=== PATIENT | male | born 1960 | race Caucasian/White ===

== ENCOUNTER 2020-02-21 11:21 | Inpatient (IN) | payer OTHER, SELFPAY ==
[2020-02-21] VITALS (9 sets, daily range): BP systolic 146–201; BP diastolic 86–117; PULSE 96–142; RESP 18–28; TEMP 36.7–36.8; O2SAT 95–99; BMI 17.6
--- NOTE | ~2020-02-21 | CT_ITS ---
EXAMINATION: CT brain wo con INDICATION: Head injury COMPARISON: 02/26/2020 TECHNIQUE: Standard unenhanced head CT. The dose-length product (DLP) was 681.00 mGy-cm. The mA was a djusted according to patient size. Iterative reconstruction technique was employed. FINDINGS: There is no acute intraparenchymal hemorrhage. No evidence of mass lesion. No evidence of a cute infarction. There is mild periventricular and subcortical hypodensity probably related to small vessel ischemic disease. There is mild prominence of the sulci and ventricles related to cerebral atr ophy. Intracranial calcified cerebral atherosclerosis is noted. There are no extra-axial collections. There is no mass effect or midline shift. The orbits and soft tissues are unremarkable. The visuali zed sinuses and mastoid air cells are well aerated. IMPRESSION: 1. No acute intracranial abnormality. 2. Age related findings. Reviewed, dictated and finalized at location A.
--- NOTE | ~2020-02-21 | XR_ITS ---
EXAMINATION: XR barium swallow modified DATE: 02/28/2020 11:11 INDICATION: Dysphagia. TECHNIQUE: The patient was given barium-containing material of multiple consistencies to swallow by fuda morejon speech pathologist while I performed fluoroscopy. Dose-area product was 2.14 Gy-cm2. 3.4 minutes fluoroscopy time FINDINGS: Oral Stage: Some to and fro motion was noted, with some delay in initiation of swallowing. Pharyngeal Phase: Laryngeal penetration Trace aspiration Vallecular and piriform sinus residue Cervical/Esophageal Stage: Within functional limits IMPRESSION: Modified esophagram findings as above. Please refer to the speech therapy report for spec ific recommendations. Reviewed, dictated and finalized at Location A. Reviewed, dictated and finalized at location A. IMPRESSION: Modified esophagram findings as above. Please refer to the speech t herapy report for specific recommendations.
--- NOTE | ~2020-02-21 | US_ITS ---
EXAMINATION: US right upper quadrant DATE: 02/22/2020 11:47 INDICATION: Abnormal liver function tests. TECHNIQUE: Multiple grayscale and Doppler ultrasound images of the abdomen were obtained. COMPARISON: Chest CT 04/11/2019 FINDINGS: The pancreas demonstrates heterogeneous echogenicity with dilatation of the pancreatic duct , consistent with chronic pancreatitis. There is diffuse hepatic steatosis. There is normal flow in m ain portal vein. The gallbladder is normal in size. No gallstones or gallbladder wall thickening. The re was no sonographic Lyons sign. The common duct is normal and measures 5 mm. IMPRESSION: 1. Diffuse hepatic steatosis. 2. Chronic pancreatitis. Reviewed, dictated and finalized at location A.
--- NOTE | ~2020-02-21 | US_ITS ---
EXAMINATION: US art doppler w press LE BI DATE: 02/21/2020 12:59 INDICATION: Claudication. TECHNIQUE: Segmental pressures and plethysmographic and Doppler waveforms of the brachial and lower e xtremity arteries were obtained. COMPARISON: Arterial Doppler and segmental pressures 10/10/2019 FINDINGS: Right and left brachial artery pressures of 183 mm Hg and 183 mm Hg, respectively, are concordant (no rmal difference <= 30 mmHg). The right high-thigh pressure index is 1.04 (normal > 1.2). The right ankle-brachial index (CAROLINA) is 1 .05 (normal >= 0.9-1.0). The right great toe-brachial index (TBI) is 0.93 (normal >= 0.65). Arterial Doppler waveforms are biphasic in common femoral artery and at least triphasic from superficial femor al artery to the ankle. The left high-thigh pressure index is 0.77. The left CAROLINA is 0.79. The left TBI is 0.55. The left lowe r extremity segmental pressure gradients are normal. Arterial Doppler waveforms are biphasic from com mon femoral artery to the ankle. IMPRESSION: 1. Stable mildly decreased left CAROLINA, consistent with arterial occlusive disease, most likely in the l eft iliofemoral distribution. Reviewed, dictated and finalized at location A. IMPRESSION: 1. Stable mildly decreased left CAROLINA, consistent with arterial occlusive disease , most likely in the left iliofemoral distribution.
--- NOTE | ~2020-02-21 | XR_ITS ---
EXAMINATION: XR chest 2V DATE: 02/25/2020 09:29 INDICATION: Cough, possible aspiration TECHNIQUE: AP and lateral views of the chest are obtained. COMPARISON: 02/21/2020 FINDINGS: The lungs are free of acute opacities. There is no pleural effusion or pneumothorax. The ca rdiomediastinal silhouette is normal. There is severe lower thoracic spondylosis. IMPRESSION: 1. No acute cardiopulmonary abnormality. Reviewed, dictated and finalized at location A.
--- NOTE | ~2020-02-21 | XR_ITS ---
EXAMINATION: XR barium swallow modified DATE: 03/01/2020 13:55 INDICATION: Dysphagia. TECHNIQUE: The patient was given barium-containing material of multiple consistencies to swallow by fuad morejon speech pathologist while I performed fluoroscopy. Dose-area product was 1.505 Gy-cm2. 2.5 minutes fluoroscopy time FINDINGS: Oral Stage: Any. And showing Pharyngeal Phase: Laryngeal penetration Vallecular and piriform sinus residue Cervical/Esophageal Stage: Within functional limits IMPRESSION: Modified esophagram findings as above. Please refer to the speech therapy report for spec [facility] recommendations. Reviewed, dictated and finalized at Location A. Reviewed, dictated and finalized at location A. IMPRESSION: Modified esophagram findings as above. Please refer to the speech t herapy report for specific recommendations.
--- NOTE | ~2020-02-21 | XR_ITS ---
EXAMINATION: XR chest 2V DATE: 02/21/2020 13:02 INDICATION: Cough and shortness of breath. TECHNIQUE: Frontal and lateral views of the chest were obtained on 3 radiographs. COMPARISON: Chest CT 04/11/2019 FINDINGS: The lungs are hyperexpanded, consistent with emphysema. There is mild atelectasis at right lung base. No pleural effusion or pneumothorax. The heart size is normal. There is mild chronic anter ior wedging of multiple thoracic vertebral bodies. IMPRESSION: 1. Mild atelectasis at right lung base. 2. Emphysema. Reviewed, dictated and finalized at location A.
--- NOTE | ~2020-02-21 | CT_ITS ---
EXAMINATION: CT brain wo con INDICATION: Transient alteration of awareness, dysphagia COMPARISON: None TECHNIQUE: Standard unenhanced head CT. The dose-length product (DLP) was 681.00 mGy-cm. The mA was a djusted according to patient size. Iterative reconstruction technique was employed. FINDINGS: There is no acute intraparenchymal hemorrhage. No evidence of mass lesion. No evidence of a cute infarction. There is mild periventricular and subcortical hypodensity probably related to small vessel ischemic disease. There is mild prominence of the sulci and ventricles related to cerebral atr ophy. Intracranial calcified cerebral atherosclerosis is noted. There are no extra-axial collections. There is no mass effect or midline shift. The orbits and soft tissues are unremarkable. The visuali zed sinuses and mastoid air cells are well aerated. IMPRESSION: 1. No acute intracranial abnormality. 2. Age related findings. Reviewed, dictated and finalized at location A.
--- NOTE | 2020-02-21 11:52 | PC.NURSE ---
After initial assessment, pt states that he used to be a heavy drinker. States he stopped drinking several pints of vodka a day last week. Pt did states he had an unknown amount of ETOH last night. Pt shaky in room, tachycardic.
[2020-02-21 11:53] LABS: Basophils Absolute Auto 0.1 K/mm3 (0.0-0.1); Basophils Percent Auto 0.8 % (0.2-1.2); Eosinophils Percent Auto 0.3 % (0-4.4); Hematocrit 34.3 % (42.0-52.0); Hemoglobin 11.9 g/dL (14.0-18.0); Immature Granulocyte Absolute 0.04 K/mm3 (0.00-0.031); Immature Granulocyte Percent A 0.4 % (0-0.5); Lymphocytes Absolute Auto 1.92 K/mm3 (0.9-3.2); Lymphocytes Percent Auto 17.6 % (18.3-44.2); Mean Corpuscular HGB Conc 34.7 g/dl (32-36); Mean Corpuscular Hemoglobin 34.5 pg (26-34); Mean Corpuscular Volume 99.4 fl (80-100); Mean Platelet Volume 11.6 fl (7.4-10.4); Monocytes Absolute Auto 0.7 K/mm3 (0.1-0.6); Monocytes Percent Auto 6.6 % (2.6-8.5); Neutrophils Absolute Auto 8.1 K/mm3 (1.3-6.7); Neutrophils Percent Auto 74.3 % (45.5-73.1); Platelet Count Result 208 k/mm3 (150-375); Red Blood Count 3.45 M/mm3 (4.6-6.20); Red Cell Distribution Width 13.9 % (11.5-14.5); White Blood Count 10.9 K/mm3 (4.5-10.0)
--- NOTE | 2020-02-21 11:58 | ECG_ITS ---
Measurements Intervals Norris Rate: 128 P: 75 HI: 167 QRS: 77 QRSD: 84 T: 71 QT: 292 QTc: 427 Interpretive Statements SINUS TACHYCARDIA ANTEROSEPTAL INFARCT, AGE INDETERMINATE BASELINE WANDER- II, III, AVR, AVF ABNORMAL ECG Electronically Signed On 02-21-2020 12:33:46 CDT by Jesus Gomez D.O.
--- NOTE | 2020-02-21 12:03 | ED.GENADULT ---
HPI - General Adult General Chief complaint: Unspecified <DULCE Walker Last Filed: 02/21/20 17:41> Stated complaint: MULTIPLE C/O <DULCE Walker Last Filed: 02/21/20 17:41> Time Seen by Provider: 02/21/20 11:48 <DULCE Walker Last Filed: 02/21/20 17:41> Source: patient <DULCE Walker Last Filed: 02/21/20 17:41> Mode of arrival: ambulatory <DULCE Walker Last Filed: 02/21/20 17:41> Limitations: no limitations <DULCE Walker Last Filed: 02/21/20 17:41> History of Present Illness HPI narrative: This is a 59 year old male that presents to the ER for leg weakness x 1 year. Reports he had ultrasounds of his legs a couple months ago and was told he had a blockage in the left leg. Reports he has continued to have pain in the legs especially with walking. Also reports weakness in the legs. Reports he has had a cough for a couple years. Reports increasing shortness of breath recently. Reports he has been diagnosed with Emphysema, but does not take any medications for this. Reports he has been bright red blood in the stool intermittently over the last couple months. Reports he last saw it a week ago. Reports he does have history of constipation and hemorrhoids. Reports a history of alcoholism. Reports he would like to stop drinking. He last drank last night. Denies fever, sore throat, congestion, abdominal pain, vomiting, diarrhea, or dysuria. <DULCE Walker Last Filed: 02/21/20 17:41> Related Data Home medications: Home Medications Medication Instructions Recorded Confirmed amlodipine 10 mg/kg PO DAILY 02/21/20 02/21/20 cyclobenzaprine 10 mg PO BID 02/21/20 02/21/20 sertraline 50 mg PO DAILY 02/21/20 02/21/20 <DULCE Walker Last Filed: 02/21/20 17:41> Allergies/adverse reactions: Allergies Allergy/AdvReac Type Severity Reaction Status Date / Time No Known Allergies Allergy Unknown Verified 02/21/20 11:35 <Carline Orr PA-C - Last Filed: 02/21/20 17:41> Review of Systems Review of Systems: Narrative: CONSTITUTIONAL: Denies fever ENT: Denies rhinorrhea, congestion, sore throat CARDIOVASCULAR: Denies chest pain, or edema. RESPIRATORY: Reports cough and dyspnea. GASTROINTESTINAL: Denies abdominal pain, nausea, vomiting, or diarrhea. GENITOURINARY: Denies dysuria or hematuria. MUSCULOSKELETAL: Reports myalgia. NEUROLOGIC: Reports weakness. <DULCE Walker Last Filed: 02/21/20 17:41> All systems reviewed & are unremarkable except as noted in HPI and below <DULCE Walker Last Filed: 02/21/20 17:41> [facility] Past Medical History Medical History: Medical History (Updated 02/21/20 @ 16:12 by Judith Bacon MD) History of depression History of hypertension <Carline Orr PA-C - Last Filed: 02/21/20 17:41> Family History Family History: Family History (Updated 02/21/20 @ 18:44 by Cherelle Todd, MAURISIO) Father Acute myocardial infarction Mother Emphysema lung Sibling Emphysema lung <DULCE Walker Last Filed: 02/21/20 17:41> Social History Social History: Social History Smoking packs per day: 1 Smoking cigarettes per day: 20.0 Years smoked: 40 Smoking pack-years: 40.00 Smoking status: Current every day smoker Tobacco type: cigarettes Alcohol intake: current Substance use: never Gender identity (if verbalized by the patient): Male Spiritual care concerns: No <DULCE Walker Last Filed: 02/21/20 17:41> Exam Narrative: Exam Narrative: GENERAL: Well-appearing, thin, and in no acute distress. HEAD: Normocephalic, atraumatic. EYES: PERRLA and EOMI. ENT: Nares clear, no rhinorrhea or epistaxis. Mucous membranes moist. Oropharynx without tonsillar hypertrophy exudate or other lesions. Bilateral TMs pearly valentine non-bulging NECK: Supple. No adenopath
[2020-02-21 12:05] LABS: Add Urine Microscopic? YES; Appearance Urine Clear (Clear); Bilirubin Urine 1+ (Negative); Blood Urine Negative (Negative); Color Urine Amber (Yellow); Glucose Urine UA Negative (Negative); Hyaline Casts Urine 20-29 /lpf; Ketones Urine Trace mg/dL (Negative); Leukocyte Esterase Ur Negative LEU/UL (Negative); Mucus Urine Rare /lpf; Nitrate Urine Negative (Negative); Protein Urine Negative (Negative); RBC Urine 0-2 /hpf (0-2); Specific Grav Ur 1.016 (1.001-1.035); Squamous Epithelial Cell Urine Rare /hpf (Few); WBC Urine 0-3 /hpf
[2020-02-21] MEDS: LORAZEPAM INJ 2 MG/ML VIAL 1 MG IV PUSH (12:05)
[2020-02-21] MEDS: SODIUM CHLORIDE 0.9% IV 1,000 ML 999 ML IV CONT (12:05)
[2020-02-21 12:12] LABS: Alanine Aminotransferase 86 U/L (4-50); Albumin Level 3.9 g/dL (3.5-5.1); Alkaline Phosphatase 732 U/L (38-126); Aspartate Amino Transferase 275 U/L (17-59); Bilirubin,Total 3.3 mg/dL (0.2-1.3); Blood Urea Nitrogen 7 mg/dL (9-20); Calcium 8.6 mg/dL (8.4-10.2); Carbon Dioxide 20 mmol/L (22-30); Chloride 98 mmol/L (98-107); Estimated CRCL calculation 90 ml/min; Estimated Glomerular Filt Rate > 60; Glucose 207 mg/dL (75-110); Lipase 76 U/L (23-300); Potassium 3.6 mmol/L (3.4-5.0); Sodium 131 mmol/L (137-145)
[2020-02-21 12:26] LABS: Partial Thromboplastin Time 28.1 SECONDS (22.3-36.8)
[2020-02-21 12:34] LABS: Lactic Acid Reflex 3.4 mmol/L (0.7-2.1)
[2020-02-21 13:13] LABS: Ethanol < 10 mg/dL (<10)
[2020-02-21 13:17] LABS: CRP 1.1 mg/dL (<1.0); Lactate Dehydrogenase 638 U/L (313-618)
[2020-02-21] MEDS: IPRATROPIUM BR 0.02% INH SOLN 0.5 MG/2.5 ML VIAL INHALATION (13:44)
[2020-02-21] MEDS: ALBUTEROL SULFATE NEB 2.5 MG/0.5 ML INH 5 MG INHALATION (13:44)
[2020-02-21] MEDS: methylPREDNISolone SOD SUCC 125 MG VIAL IV PUSH (15:17)
[2020-02-21 15:18] LABS: Reflex Lactic Acid Yes or No Add Lactic
[2020-02-21] MEDS: ALBUTEROL SULFATE (*SP) AEROSOL 1 PUFF 2 PUFF INHALATION ×2 (15:33→19:37)
[2020-02-21 15:51] LABS: Lactic Acid 1.3 mmol/L (0.7-2.1)
[2020-02-21] MEDS: LORAZEPAM INJ 2 MG/ML VIAL 0.5 MG IV PUSH (16:52)
--- NOTE | 2020-02-21 17:15 | ADMGEN ---
This patient, Tito Raphael, was admitted to [facility] Surg Room 328-01. Patient/family oriented to hospital policies and general routines including ID bracelet, bed and alarms, visiting hours, pain management, procedures, bathroom and other care routines, personal items, smoking policy, room service/diet, and visiting hours. Valuables list has been completed. Information on how to activate the Rapid Response Team has been discussed. Patient/Family are encouraged to report perceived risks to care and to ask questions if they do not understand what they are told or what they should do.
--- NOTE | 2020-02-21 17:27 | ADMGEN ---
This patient, Tito Raphael, was admitted to [facility] Surg Room 328-01. Patient/family oriented to hospital policies and general routines including ID bracelet, bed and alarms, visiting hours, pain management, procedures, bathroom and other care routines, personal items, smoking policy, room service/diet, and visiting hours. Valuables list has been completed. Information on how to activate the Rapid Response Team has been discussed. Patient/Family are encouraged to report perceived risks to care and to ask questions if they do not understand what they are told or what they should do.
[2020-02-21] MEDS: methylPREDNISolone SOD SUCC 125 MG VIAL 60 MG IV PUSH (21:05)
--- NOTE | 2020-02-21 21:37 | PM.IMHP ---
H&P: HPI History of Present Illness Chief complaint: Alcohol withdrawal/COPD exacerbation Narrative: Tito Raphael is a 59 year old male this is a known alcoholic. The patient used to drink a 5th of gin every day. He stated that he decided he was going to try to cut down on his own. So he started to wean himself down to 5 times a week and then 4 times weak and the patient got down to drinking alcohol 3 times a week. The patient stated that he drink last night he drink a pint of gin. The patient is complaining of pain in his feet and his legs that they burn all the time. He is complaining of left leg pain they did arterial Dopplers which shows mild decrease in arterial flow the left leg which appears to be chronic and consistent. A give the patient Vicodin that seemed to help. The only other diagnosis at the patient has hypertension, depression, anxiety. Patient was recently diagnosed with COPD as well. He was prescribed some inhalers. Patient stated he has been coughing and short of breath. He denies any fever chills. Patient currently is not working. He has no health insurance and was planning on filing for disability. He was given a banana bag. He was given an inhaler. He was started on Solu-Medrol. He was given Ativan. Date of service 06/23/2020. Review of Systems Review of Systems: All systems reviewed & are unremarkable except as noted in HPI and below Constitutional: Constitutional: Reports as per HPI and Reports no additional constitutional complaints Eyes: Eyes: Reports as per HPI and Reports no additional eye complaints ENT: Reports system reviewed and no additional complaints, except as documented and Reports Normal hearing present Cardiovascular: Cardiovascular: Reports no additional cardiovascular complaints Respiratory: Respiratory: Reports no additional respiratory complaints and Reports no additional respiratory complaints Gastrointestinal: Gastrointestinal: Reports as per HPI and Reports no additional gastrointestinal complaints Musculoskeletal: Musculoskeletal: Reports no additional musculoskeletal complaints Integumentary/Breasts: Skin/Breast: Reports system reviewed and no additional complaints, except as docu and Reports as per HPI Neurologic: Reports system reviewed and no additional complaints, except as documented, Reports as per HPI and Reports Normal hearing present Psychiatric: Psychiatric: Reports no additional psychiatric complaints and Reports as per HPI Endocrine: Endocrine: Reports no additional endocrine complaints Hematologic/Lymphatic: Hematologic/Lymphatic: Reports no additional hematologic/lymphatic complaints Allergic/Immunologic: Allergic/Immunologic: Reports no additional allergic/immunologic complaints PMFSH Past Medical History Medical History (Updated 02/21/20 @ 22:01 by Shyla Reagan NP) Depression History of depression History of hypertension Hypertension Surgical History Surgical History (Updated 02/21/20 @ 21:56 by Shyla Reagan NP) No pertinent past surgical history Family History Family History Father Acute myocardial infarction Mother Emphysema lung Sibling Emphysema lung Social History Social History (Updated 02/21/20 @ 21:58 by Shyla Reagan NP) Social History: The patient lives with his aunt and is not currently employed anywhere. He stated that he was going to try to work on some disability. The patient helps to take care of his aunt and helps to take care of another elderly lady. The patient currently smokes cigarettes. He was drinking a pt of gin every day and he tried to wean off of it by cutting down to 3 times a week the last drink last night. He drink a pt of gin. He was a long time ago but . He has no children. Smoking packs per day: 1 Smoking cigarettes per day: 20.0 Years smoked: 40 Smoking pack-years: 40.00 Smoking status: Current every d
[2020-02-21] MEDS: CYCLOBENZAPRINE HCL 10 MG TABLET PO (21:43)
[2020-02-21] MEDS: GABAPENTIN 100 MG CAPSULE PO (21:55)
[2020-02-21] MEDS: CHLORDIAZEPOXIDE 25 MG CAPSULE PO (23:50)
[2020-02-22] VITALS (14 sets, daily range): BP systolic 113–155; BP diastolic 68–91; PULSE 76–124; RESP 14–20; TEMP 36.2–37.2; O2SAT 96–100; BMI 17.6
[2020-02-22] MEDS: methylPREDNISolone SOD SUCC 125 MG VIAL 60 MG IV PUSH ×3 (05:20→18:21)
[2020-02-22] MEDS: CHLORDIAZEPOXIDE 25 MG CAPSULE PO (05:20)
[2020-02-22 06:07] LABS: Basophils Percent Auto 0.3 % (0.2-1.2); Hematocrit 31.8 % (42.0-52.0); Hemoglobin 10.8 g/dL (14.0-18.0); Immature Granulocyte Absolute 0.02 K/mm3 (0.00-0.031); Immature Granulocyte Percent A 0.5 % (0-0.5); Lymphocytes Percent Auto 16.1 % (18.3-44.2); Mean Corpuscular Hemoglobin 34.4 pg (26-34); Mean Corpuscular Volume 101.3 fl (80-100); Mean Platelet Volume 11.4 fl (7.4-10.4); Monocytes Absolute Auto 0.2 K/mm3 (0.1-0.6); Neutrophils Percent Auto 79.1 % (45.5-73.1); Platelet Count Result 170 k/mm3 (150-375); Red Blood Count 3.14 M/mm3 (4.6-6.20); Red Cell Distribution Width 13.8 % (11.5-14.5); White Blood Count 3.7 K/mm3 (4.5-10.0)
[2020-02-22 06:17] LABS: Alanine Aminotransferase 68 U/L (4-50); Albumin Level 3.5 g/dL (3.5-5.1); Alkaline Phosphatase 580 U/L (38-126); Aspartate Amino Transferase 164 U/L (17-59); Bilirubin,Total 2.8 mg/dL (0.2-1.3); Blood Urea Nitrogen 2 mg/dL (9-20); Calcium 8.9 mg/dL (8.4-10.2); Carbon Dioxide 25 mmol/L (22-30); Chloride 101 mmol/L (98-107); Estimated CRCL calculation 107 ml/min; Estimated Glomerular Filt Rate > 60; Glucose 161 mg/dL (75-110); Magnesium 1.7 mg/dL (1.6-2.3); Potassium 3.5 mmol/L (3.4-5.0); Sodium 132 mmol/L (137-145)
[2020-02-22 08:26] LABS: Immature Reticulocyte Fraction 24.8 % (3.0-15.9); Reticulocyte Hemoglobin Conten 38.2 pg (28.2-35.7); Reticulocyte Percent 1.68 % (0.7-4.3); Reticulocytes Absolute 0.05 B/L (32.2-175.7)
[2020-02-22 08:37] LABS: Ammonia 38 umol/L (9-30)
[2020-02-22] MEDS: ALBUTEROL SULFATE (*SP) AEROSOL 1 PUFF 2 PUFF INHALATION ×3 (08:49→19:37)
[2020-02-22 09:07] LABS: Iron 109 ug/dL (49-181)
[2020-02-22] MEDS: FOLIC ACID 1 MG TABLET PO (09:16)
[2020-02-22] MEDS: AMLODIPINE BESYLATE 5 MG TABLET 10 MG PO (09:16)
[2020-02-22] MEDS: SERTRALINE HCL 50 MG TABLET PO (09:16)
[2020-02-22] MEDS: GABAPENTIN 100 MG CAPSULE PO ×3 (09:16→18:25)
[2020-02-22] MEDS: CYCLOBENZAPRINE HCL 10 MG TABLET PO ×2 (09:16→20:47)
[2020-02-22 09:17] LABS: Percent Iron Saturation 50 % (20-50)
[2020-02-22] MEDS: LORAZEPAM 1 MG TABLET 2 MG PO (09:17)
[2020-02-22] MEDS: THIAMINE HCL 100 MG TABLET PO (09:17)
[2020-02-22] MEDS: POTASSIUM CHLORIDE 20 MEQ TABLET 40 MEQ PO (09:17)
[2020-02-22 09:40] LABS: Hepatitis B Surface Antigen Negative (Negative)
[2020-02-22 09:44] LABS: HAV RESULT Negative (Negative)
[2020-02-22 09:46] LABS: Folic Acid > 20.0 ng/mL (2.76->20)
[2020-02-22 09:58] LABS: Hepatitis C Virus Antibody Negative (Negative)
[2020-02-22] MEDS: LORAZEPAM INJ 2 MG/ML VIAL IV PUSH ×3 (12:03→20:47)
[2020-02-22] MEDS: CHLORDIAZEPOXIDE 25 MG CAPSULE 50 MG PO (12:03)
[2020-02-22] MEDS: HALOPERIDOL LACTATE 5 MG/ML VIAL IM (12:38)
--- NOTE | 2020-02-22 13:26 | PM.IMPN ---
Progress Note: A&P Assessment and Plan (1) Alcohol withdrawal: Qualifiers: Complication of substance-induced condition: uncomplicated Qualified Code(s): F10.230 - Alcohol dependence with withdrawal, uncomplicated Code(s): F10.239 - Alcohol dependence with withdrawal, unspecified Status: Acute Assessment and Plan: 02/21 CIWA scores from teens to low 20s 02/21 Added p.r.n. haloperidol, increased chlordiazepoxide to 100 mg every 6 hours, increased lorazepam to 2 mg IV q.2 hours p.r.n. 02/21 Discussed with nursing staff that if these measures are ineffective with the transferred to intensive care for Precedex IV (2) Acute exacerbation of chronic obstructive pulmonary disease: Code(s): J44.1 - Chronic obstructive pulmonary disease with (acute) exacerbation Status: Acute Assessment and Plan: 02/21 Transition to p.o. steroids Continue bronchodilators (3) Suspected 2019-nCoV infection: Code(s): Z20.828 - Contact with and (suspected) exposure to other viral communicable diseases Status: Acute Assessment and Plan: Negative (4) Depression: Qualifiers: Depression Type: unspecified Qualified Code(s): F32.9 - Major depressive disorder, single episode, unspecified Code(s): F32.9 - Major depressive disorder, single episode, unspecified Status: Chronic Assessment and Plan: Continue with patient's sertraline. (5) Hypertension: Qualifiers: Hypertension type: unspecified Qualified Code(s): I10 - Essential (primary) hypertension Code(s): I10 - Essential (primary) hypertension Status: Chronic Assessment and Plan: Continue with Norvasc. Could be related to his alcohol abuse. (6) Peripheral artery disease: Code(s): I73.9 - Peripheral vascular disease, unspecified Status: Acute Assessment and Plan: Patient has mild decrease an CAROLINA to the left leg. Could be related to his alcoholism. He also has peripheral neuropathy sore started him on low doses of gabapentin. (7) Neuropathy: Code(s): G62.9 - Polyneuropathy, unspecified Status: Acute Assessment and Plan: I did started him on low doses of gabapentin. Subjective Date/time seen: 02/22/20 13:26 Interval history: Admitted 02/20 with alcohol withdrawal. Very agitated earlier. Improved with IV lorazepam and IM haloperidol. Now resting. Review of Systems Review of Systems: ROS unobtainable: Yes unobtainable due to medical condition Exam Narrative: Exam Narrative: HEENT: PERRL, sclerae nonicteric, pharyngeal mucosa pink and intact NECK: No JVD CHEST: Clear to auscultation. Normal effort. HEART: NL S1/S2, regular, no murmur ABDOMEN: BS+, soft, nontender, no mass, no bruits EXTREMITIES: No cyanosis, edema, or clubbing NEUROLOGIC: CN intact and symmetric to inspection. MUSCULOSKELETAL: Tone and strength symmetric. PSYCH: Sleeping soundly Objective Data Vital Signs Vital Signs: Vital Signs - 24 hr 02/21/20 13:44 02/21/20 14:15 02/21/20 15:41 Temperature 98.1 F Pulse Rate 110 H 116 H 96 Pulse Rate [Monitor] Respiratory Rate 20 20 20 Blood Pressure 146/94 H 154/98 H Pulse Oximetry 95 97 02/21/20 16:52 02/21/20 17:30 02/21/20 20:00 Temperature Pulse Rate 97 96 113 H Pulse Rate [Monitor] 97 Respiratory Rate 20 20 Blood Pressure 161/95 H 154/98 H Pulse Oximetry 97 97 97 02/21/20 22:00 02/22/20 00:00 02/22/20 02:00 Temperature 98.3 F 98.6 F Pulse Rate 99 105 H 99 Pulse Rate [Monitor] 105 H Respiratory Rate 18 18 Blood Pressure 153/86 H 155/82 H Pulse Oximetry 99 96 02/22/20 04:00 02/22/20 04:36 02/22/20 06:00 Temperature 98.9 F Pulse Rate 106 H 97 Pulse Rate [Monitor] 106 H Respiratory Rate 18 Blood Pressure 145/91 H Pulse Oximetry 96 98 02/22/20 08:00 02/22/20 08:51 02/22/20 10:00 Temperature 98.3 F Pulse Rate 95 97 107 H Pulse Rate [Monitor] Resp
[2020-02-22 13:37] LABS: SARS-CoV-2 RNA PCR Negative
[2020-02-22] MEDS: CHLORDIAZEPOXIDE 25 MG CAPSULE 100 MG PO (18:25)
[2020-02-23] VITALS (11 sets, daily range): BP systolic 90–148; BP diastolic 60–87; PULSE 62–93; RESP 16–20; TEMP 35.8–36.4; O2SAT 91–99
[2020-02-23] MEDS: CHLORDIAZEPOXIDE 25 MG CAPSULE 100 MG PO ×5 (00:37→23:27)
[2020-02-23] MEDS: methylPREDNISolone SOD SUCC 125 MG VIAL 60 MG IV PUSH ×5 (00:37→23:26)
[2020-02-23] MEDS: LORAZEPAM INJ 2 MG/ML VIAL IV PUSH ×3 (01:03→23:30)
[2020-02-23 07:13] LABS: Hematocrit 32.6 % (42.0-52.0); Hemoglobin 10.8 g/dL (14.0-18.0); Mean Corpuscular HGB Conc 33.1 g/dl (32-36); Mean Corpuscular Hemoglobin 34.3 pg (26-34); Mean Corpuscular Volume 103.5 fl (80-100); Mean Platelet Volume 12.1 fl (7.4-10.4); Platelet Count Result 172 k/mm3 (150-375); Red Blood Count 3.15 M/mm3 (4.6-6.20); Red Cell Distribution Width 13.8 % (11.5-14.5); White Blood Count 6.9 K/mm3 (4.5-10.0)
[2020-02-23 07:29] LABS: Alanine Aminotransferase 63 U/L (4-50); Albumin Level 3.6 g/dL (3.5-5.1); Alkaline Phosphatase 497 U/L (38-126); Aspartate Amino Transferase 109 U/L (17-59); Bilirubin,Total 2.7 mg/dL (0.2-1.3); Blood Urea Nitrogen 10 mg/dL (9-20); Calcium 9.4 mg/dL (8.4-10.2); Carbon Dioxide 24 mmol/L (22-30); Chloride 103 mmol/L (98-107); Estimated CRCL calculation 107 ml/min; Estimated Glomerular Filt Rate > 60; Glucose 145 mg/dL (75-110); Potassium 3.9 mmol/L (3.4-5.0); Sodium 134 mmol/L (137-145)
[2020-02-23] MEDS: ALBUTEROL SULFATE (*SP) AEROSOL 1 PUFF 2 PUFF INHALATION ×4 (08:40→20:51)
[2020-02-23] MEDS: SERTRALINE HCL 50 MG TABLET PO (08:53)
[2020-02-23] MEDS: AMLODIPINE BESYLATE 5 MG TABLET 10 MG PO (08:54)
[2020-02-23] MEDS: GABAPENTIN 100 MG CAPSULE PO ×3 (08:54→18:26)
[2020-02-23] MEDS: FOLIC ACID 1 MG TABLET PO (08:54)
[2020-02-23] MEDS: CYCLOBENZAPRINE HCL 10 MG TABLET PO ×2 (08:54→20:20)
[2020-02-23] MEDS: THIAMINE HCL 100 MG TABLET PO (08:54)
--- NOTE | 2020-02-23 11:35 | PM.IMPN ---
Progress Note: A&P Assessment and Plan (1) Alcohol withdrawal: Qualifiers: Complication of substance-induced condition: uncomplicated Qualified Code(s): F10.230 - Alcohol dependence with withdrawal, uncomplicated Code(s): F10.239 - Alcohol dependence with withdrawal, unspecified Status: Acute Assessment and Plan: 02/21 CIWA scores from teens to low 20s 02/21 Added p.r.n. haloperidol, increased chlordiazepoxide to 100 mg every 6 hours, increased lorazepam to 2 mg IV q.2 hours p.r.n. 02/21 Discussed with nursing staff that if these measures are ineffective with the transferred to intensive care for Precedex IV 02/22 Symptoms well controlled on day 3 without alcohol and plan to wean sedation after day 4. (2) Acute exacerbation of chronic obstructive pulmonary disease: Code(s): J44.1 - Chronic obstructive pulmonary disease with (acute) exacerbation Status: Acute Assessment and Plan: 02/21 Transitioned to p.o. steroids Continue bronchodilators (3) Suspected 2019-nCoV infection: Code(s): Z20.828 - Contact with and (suspected) exposure to other viral communicable diseases Status: Acute Assessment and Plan: Negative (4) Depression: Qualifiers: Depression Type: unspecified Qualified Code(s): F32.9 - Major depressive disorder, single episode, unspecified Code(s): F32.9 - Major depressive disorder, single episode, unspecified Status: Chronic Assessment and Plan: Continue with patient's sertraline. (5) Hypertension: Qualifiers: Hypertension type: unspecified Qualified Code(s): I10 - Essential (primary) hypertension Code(s): I10 - Essential (primary) hypertension Status: Chronic Assessment and Plan: Continue with Norvasc. (6) Peripheral artery disease: Code(s): I73.9 - Peripheral vascular disease, unspecified Status: Acute Assessment and Plan: Patient has mild decrease an [place] to the left leg. (7) Neuropathy: Code(s): G62.9 - Polyneuropathy, unspecified Status: Acute Assessment and Plan: Continue Gabapentin Subjective Date/time seen: 02/23/20 11:35 Interval history: Admitted 02/20 with alcohol withdrawal. Last drink 02/19. 02/22 Tolerated diet. Resting comfortably. Still confused. Intermittently hallucinating. Review of Systems Review of Systems: All systems reviewed & are unremarkable except as noted in HPI and below Exam Narrative: Exam Narrative: HEENT: PERRL, sclerae nonicteric, pharyngeal mucosa pink and intact NECK: No JVD CHEST: Clear to auscultation. Normal effort. HEART: NL S1/S2, regular, no murmur ABDOMEN: BS+, soft, nontender, no mass, no bruits EXTREMITIES: No cyanosis, edema, or clubbing NEUROLOGIC: CN intact and symmetric to inspection. MUSCULOSKELETAL: Tone and strength symmetric. PSYCH: Drowsy but arouses easily. Ox1 Objective Data Vital Signs Vital Signs: Vital Signs - 24 hr 02/22/20 12:00 02/22/20 12:36 02/22/20 14:00 Temperature 98.3 F Pulse Rate 124 H 82 Pulse Rate [Monitor] 122 H Respiratory Rate 20 14 Blood Pressure 114/68 Pulse Oximetry 96 02/22/20 16:00 02/22/20 20:00 02/22/20 22:00 Temperature 97.2 F L Pulse Rate 90 Pulse Rate [Monitor] 82 76 Respiratory Rate 16 Blood Pressure 119/72 113/85 Pulse Oximetry 98 02/23/20 00:00 02/23/20 02:26 02/23/20 06:00 Temperature 97.0 F L 97.3 F L Pulse Rate 80 79 Pulse Rate [Monitor] 93 Respiratory Rate 18 16 Blood Pressure 134/81 106/73 148/87 H Pulse Oximetry 99 99 02/23/20 08:40 Temperature Pulse Rate 62 Pulse Rate [Monitor] Respiratory Rate 20 Blood Pressure Pulse Oximetry Intake/Output Intake/Output: Intake & Output 02/20/20 02/21/20 02/22/20 02/23/20 23:59 23:59 23:59 23:59 Intake Total 1000 520 120 Output Total 950 Balance 1000 -430 120 Meds/Results Medications: Active Medications Generic
[2020-02-24] VITALS (8 sets, daily range): BP systolic 106–118; BP diastolic 70–78; PULSE 69–92; RESP 16–18; TEMP 36.3–36.6; O2SAT 94–99
[2020-02-24] MEDS: CHLORDIAZEPOXIDE 25 MG CAPSULE 100 MG PO ×3 (06:22→17:57)
[2020-02-24] MEDS: methylPREDNISolone SOD SUCC 125 MG VIAL 60 MG IV PUSH (06:22)
[2020-02-24 06:40] LABS: Hematocrit 32.9 % (42.0-52.0); Mean Corpuscular HGB Conc 33.4 g/dl (32-36); Mean Corpuscular Hemoglobin 34.9 pg (26-34); Mean Corpuscular Volume 104.4 fl (80-100); Mean Platelet Volume 11.8 fl (7.4-10.4); Platelet Count Result 187 k/mm3 (150-375); Red Blood Count 3.15 M/mm3 (4.6-6.20); Red Cell Distribution Width 13.8 % (11.5-14.5); White Blood Count 10.3 K/mm3 (4.5-10.0)
[2020-02-24] MEDS: ALBUTEROL SULFATE (*SP) AEROSOL 1 PUFF 2 PUFF INHALATION ×4 (08:27→20:06)
[2020-02-24] MEDS: FOLIC ACID 1 MG TABLET PO (09:51)
[2020-02-24] MEDS: GABAPENTIN 100 MG CAPSULE PO ×3 (09:51→17:57)
[2020-02-24] MEDS: AMLODIPINE BESYLATE 5 MG TABLET 10 MG PO (09:51)
[2020-02-24] MEDS: THIAMINE HCL 100 MG TABLET PO (09:51)
[2020-02-24] MEDS: CYCLOBENZAPRINE HCL 10 MG TABLET PO ×2 (09:51→21:38)
[2020-02-24] MEDS: SERTRALINE HCL 50 MG TABLET PO (09:51)
[2020-02-24] MEDS: LORAZEPAM INJ 2 MG/ML VIAL IV PUSH ×2 (09:53→21:38)
[2020-02-24 10:58] LABS: Alanine Aminotransferase 71 U/L (4-50); Albumin Level 3.4 g/dL (3.5-5.1); Alkaline Phosphatase 453 U/L (38-126); Aspartate Amino Transferase 107 U/L (17-59); Bilirubin,Total 2.1 mg/dL (0.2-1.3); Blood Urea Nitrogen 19 mg/dL (9-20); Carbon Dioxide 23 mmol/L (22-30); Chloride 103 mmol/L (98-107); Estimated CRCL calculation 79 ml/min; Estimated Glomerular Filt Rate > 60; Glucose 191 mg/dL (75-110); Potassium 4.1 mmol/L (3.4-5.0); Sodium 131 mmol/L (137-145)
--- NOTE | 2020-02-24 11:51 | PM.IMPN ---
Progress Note: A&P Assessment and Plan (1) Alcohol withdrawal: Qualifiers: Complication of substance-induced condition: uncomplicated Qualified Code(s): F10.230 - Alcohol dependence with withdrawal, uncomplicated Code(s): F10.239 - Alcohol dependence with withdrawal, unspecified Status: Acute Assessment and Plan: 02/21 CIWA scores from teens to low 20s 02/21 Added p.r.n. haloperidol, increased chlordiazepoxide to 100 mg every 6 hours, increased lorazepam to 2 mg IV q.2 hours p.r.n. 02/21 Discussed with nursing staff that if these measures are ineffective with the transferred to intensive care for Precedex IV 02/23 Symptoms well controlled on day 4 without alcohol and plan to wean sedation 02/24. (2) Acute exacerbation of chronic obstructive pulmonary disease: Code(s): J44.1 - Chronic obstructive pulmonary disease with (acute) exacerbation Status: Acute Assessment and Plan: 02/22 Transitioned to p.o. steroids Continue bronchodilators (3) Suspected 2019-nCoV infection: Code(s): Z20.828 - Contact with and (suspected) exposure to other viral communicable diseases Status: Acute Assessment and Plan: Negative (4) Depression: Qualifiers: Depression Type: unspecified Qualified Code(s): F32.9 - Major depressive disorder, single episode, unspecified Code(s): F32.9 - Major depressive disorder, single episode, unspecified Status: Chronic Assessment and Plan: Continue with patient's sertraline. (5) Hypertension: Qualifiers: Hypertension type: unspecified Qualified Code(s): I10 - Essential (primary) hypertension Code(s): I10 - Essential (primary) hypertension Status: Chronic Assessment and Plan: Continue with Norvasc. (6) Peripheral artery disease: Code(s): I73.9 - Peripheral vascular disease, unspecified Status: Acute Assessment and Plan: Patient has mild decrease an [place] to the left leg. (7) Neuropathy: Code(s): G62.9 - Polyneuropathy, unspecified Status: Acute Assessment and Plan: Continue Gabapentin Subjective Date/time seen: 02/24/20 11:51 Interval history: Admitted 02/20 with alcohol withdrawal. Last drink 02/19. 02/23 Tolerated diet. Resting comfortably. Still confused. Intermittently hallucinating. Review of Systems Review of Systems: ROS unobtainable: Yes unobtainable due to medical condition Exam Narrative: Exam Narrative: HEENT: PERRL, sclerae nonicteric, pharyngeal mucosa pink and intact NECK: No JVD CHEST: Clear to auscultation. Normal effort. HEART: NL S1/S2, regular, no murmur ABDOMEN: BS+, soft, nontender, no mass, no bruits EXTREMITIES: No cyanosis, edema, or clubbing NEUROLOGIC: CN intact and symmetric to inspection. MUSCULOSKELETAL: Tone and strength symmetric. PSYCH: Drowsy but arouses easily. Ox1 Objective Data Vital Signs Vital Signs: Vital Signs - 24 hr 02/23/20 12:00 02/23/20 14:00 02/23/20 17:34 Temperature 97.6 F 97.2 F L Pulse Rate 84 84 Pulse Rate [Monitor] 76 Respiratory Rate 16 18 Blood Pressure 108/60 90/68 L Pulse Oximetry 94 96 02/23/20 20:00 02/23/20 20:54 02/23/20 22:00 Temperature 96.5 F L Pulse Rate 77 80 Pulse Rate [Monitor] 65 Respiratory Rate 18 18 Blood Pressure 104/67 121/70 Pulse Oximetry 91 02/24/20 01:51 02/24/20 06:00 02/24/20 09:47 Temperature 97.3 F L 97.8 F Pulse Rate 69 73 Pulse Rate [Monitor] 84 Respiratory Rate 18 18 Blood Pressure 115/70 106/70 106/70 Pulse Oximetry 94 97 Intake/Output Intake/Output: Intake & Output 02/21/20 02/22/20 02/23/20 02/24/20 23:59 23:59 23:59 23:59 Intake Total 1000 520 340 60 Output Total 950 100 Balance 1000 -430 240 60 Meds/Results Medications: Active Medications Generic Name Dose Route Start Last Admin Trade Name Freq PRN Reason Stop Dose Admin Albuterol 2 puff 02/21/20 20:00 02/24/20 08:27
[2020-02-24] MEDS: predniSONE 20 MG TABLET 40 MG PO (12:23)
[2020-02-25] VITALS (14 sets, daily range): BP systolic 104–122; BP diastolic 68–75; PULSE 74–90; RESP 18–20; TEMP 36.3–36.6; O2SAT 86–99
[2020-02-25] MEDS: CHLORDIAZEPOXIDE 25 MG CAPSULE 100 MG PO (00:25)
[2020-02-25 06:38] LABS: Ammonia 25 umol/L (9-30)
[2020-02-25 06:41] LABS: Hematocrit 35.5 % (42.0-52.0); Hemoglobin 11.5 g/dL (14.0-18.0); Mean Corpuscular HGB Conc 32.4 g/dl (32-36); Mean Corpuscular Hemoglobin 34.6 pg (26-34); Mean Corpuscular Volume 106.9 fl (80-100); Mean Platelet Volume 11.4 fl (7.4-10.4); Platelet Count Result 205 k/mm3 (150-375); Red Blood Count 3.32 M/mm3 (4.6-6.20); Red Cell Distribution Width 13.9 % (11.5-14.5); White Blood Count 13.4 K/mm3 (4.5-10.0)
[2020-02-25 06:47] LABS: INR 1.1; Prothrombin Time 13.4 Seconds (11.1-14.7)
[2020-02-25 06:53] LABS: Alanine Aminotransferase 79 U/L (4-50); Albumin Level 3.4 g/dL (3.5-5.1); Alkaline Phosphatase 423 U/L (38-126); Aspartate Amino Transferase 124 U/L (17-59); Bilirubin,Total 1.7 mg/dL (0.2-1.3); Blood Urea Nitrogen 25 mg/dL (9-20); Carbon Dioxide 25 mmol/L (22-30); Chloride 104 mmol/L (98-107); Estimated CRCL calculation 79 ml/min; Estimated Glomerular Filt Rate > 60; Glucose 142 mg/dL (75-110); Sodium 134 mmol/L (137-145)
[2020-02-25] MEDS: ALBUTEROL SULFATE (*SP) AEROSOL 1 PUFF 6 PUFF INHALATION (08:32)
--- NOTE | 2020-02-25 10:08 | PM.IMPN ---
Progress Note: A&P Assessment and Plan (1) Aspiration into airway: Qualifiers: Encounter type: initial encounter Qualified Code(s): T17.908A - Unspecified foreign body in respiratory tract, part unspecified causing other injury, initial encounter Code(s): T17.908A - Unspecified foreign body in respiratory tract, part unspecified causing other injury, initial encounter Status: Acute Assessment and Plan: Likely due to altered mental status related to alcohol withdrawal as no focal findings on exam Swallow eval CXR Hold sedation and reassess mental status (2) Alcohol withdrawal: Qualifiers: Complication of substance-induced condition: uncomplicated Qualified Code(s): F10.230 - Alcohol dependence with withdrawal, uncomplicated Code(s): F10.239 - Alcohol dependence with withdrawal, unspecified Status: Acute Assessment and Plan: 02/21 CIWA scores from teens to low 20s 02/21 Added p.r.n. haloperidol, increased chlordiazepoxide to 100 mg every 6 hours, increased lorazepam to 2 mg IV q.2 hours p.r.n. 02/21 Discussed with nursing staff that if these measures are ineffective with the transferred to intensive care for Precedex IV 02/23 Symptoms well controlled on day 4 without alcohol and planned to wean sedation 02/24. 02/24 Stop chlordiazepoxide, continue prn lorazepam (3) Acute exacerbation of chronic obstructive pulmonary disease: Code(s): J44.1 - Chronic obstructive pulmonary disease with (acute) exacerbation Status: Acute Assessment and Plan: 02/22 Transitioned to p.o. steroids Continue bronchodilators (4) Suspected 2019-nCoV infection: Code(s): Z20.828 - Contact with and (suspected) exposure to other viral communicable diseases Status: Acute Assessment and Plan: Negative (5) Depression: Qualifiers: Depression Type: unspecified Qualified Code(s): F32.9 - Major depressive disorder, single episode, unspecified Code(s): F32.9 - Major depressive disorder, single episode, unspecified Status: Chronic Assessment and Plan: Continue with patient's sertraline. (6) Hypertension: Qualifiers: Hypertension type: unspecified Qualified Code(s): I10 - Essential (primary) hypertension Code(s): I10 - Essential (primary) hypertension Status: Chronic Assessment and Plan: Continue with Norvasc. (7) Peripheral artery disease: Code(s): I73.9 - Peripheral vascular disease, unspecified Status: Acute Assessment and Plan: Patient has mild decrease an [place] to the left leg. (8) Neuropathy: Code(s): G62.9 - Polyneuropathy, unspecified Status: Acute Assessment and Plan: Continue Gabapentin Subjective Date/time seen: 02/25/20 10:08 Interval history: Admitted 02/20 with alcohol withdrawal. Last drink 02/19. 02/24 Aspirated AM meds. Requiring oxygen. More lethargic. Review of Systems Review of Systems: ROS unobtainable: Yes unobtainable due to medical condition Exam Narrative: Exam Narrative: HEENT: PERRL, sclerae nonicteric, pharyngeal mucosa pink and intact NECK: No JVD CHEST: Coarse rhonchi. Normal effort. HEART: NL S1/S2, regular, no murmur ABDOMEN: BS+, soft, nontender, no mass, no bruits EXTREMITIES: No cyanosis, edema, or clubbing NEUROLOGIC: CN intact and symmetric to inspection. MUSCULOSKELETAL: Tone and strength symmetric. PSYCH: Drowsy but arouses easily. Ox1 Objective Data Vital Signs Vital Signs: Vital Signs - 24 hr 02/24/20 10:10 02/24/20 12:00 02/24/20 14:00 Temperature 97.6 F 97.8 F Pulse Rate 92 90 Pulse Rate [Monitor] 89 Respiratory Rate 18 18 Blood Pressure 111/72 110/70 110/78 Pulse Oximetry 98 99 02/24/20 16:21 02/24/20 22:00 02/25/20 06:00 Temperature 97.9 F 97.8 F Pulse Rate 79 85 Pulse Rate [Monitor] 85 Respiratory Rate 16 20 Blood Pressure 107/72 118/78 106/75 Pulse Oximetry 96
[2020-02-25 14:01] LABS: Alveolar/Arterial O2 Gradient 99.1 mmHg; Base Excess ABG 2.2 mEq/l (+/-2.0); Fractional Inspired Oxygen 30 %; Oxygen Content ABG 15.7 %vol (16.0-22.0); Oxygen Saturation ABG 92.9 % (95.0-100.0); Oxyhemoglobin 89.8 % THb (90.0-100.0); PCO2 ABG 42.7 mmHg (35.0-45.0); PO2 ABG 64.6 mmHg (80.0-100.0); PO2 FiO2 Ratio Arterial Blood 2.15 %; Total Hemoglobin 12.4 g/dL (12.0-18.0); pH ABG 7.418 (7.350-7.450)
[2020-02-25 14:02] LABS: Site Drawn RIGHT BRACHIAL
[2020-02-25 14:03] LABS: Device NASAL CANNULA
[2020-02-25 14:04] LABS: Liters per Minute 2.5 LPM
--- NOTE | 2020-02-25 17:02 | PCRCNOTE ---
Patient has been extremely sleepy all day and doesn't awaken enough to properly do an inhaler. Both nurse and doctor are aware. Doctor will be changing inhaler order to a nebulizer order.
--- NOTE | 2020-02-25 19:29 | PC.NURSE ---
Bladder scanned pt, due to no output on this shift. Pt's bladder scan was 934. Called Dr. Augustine and left a message on his voicemail. Notified oncoming night nurse of results and that a call was placed. Also called the hospitalist office with no answer.
[2020-02-26] VITALS (10 sets, daily range): BP systolic 92–122; BP diastolic 64–84; PULSE 77–102; RESP 20–28; TEMP 36.3–37.1; O2SAT 90–98
[2020-02-26 06:59] LABS: Hematocrit 37.1 % (42.0-52.0); Mean Corpuscular HGB Conc 32.3 g/dl (32-36); Mean Corpuscular Hemoglobin 34.4 pg (26-34); Mean Corpuscular Volume 106.3 fl (80-100); Mean Platelet Volume 11.2 fl (7.4-10.4); Platelet Count Result 209 k/mm3 (150-375); Red Blood Count 3.49 M/mm3 (4.6-6.20); Red Cell Distribution Width 13.7 % (11.5-14.5); White Blood Count 15.2 K/mm3 (4.5-10.0)
[2020-02-26 07:17] LABS: Alanine Aminotransferase 77 U/L (4-50); Albumin Level 3.6 g/dL (3.5-5.1); Alkaline Phosphatase 377 U/L (38-126); Aspartate Amino Transferase 119 U/L (17-59); Bilirubin,Total 1.7 mg/dL (0.2-1.3); Blood Urea Nitrogen 26 mg/dL (9-20); Calcium 8.8 mg/dL (8.4-10.2); Carbon Dioxide 25 mmol/L (22-30); Chloride 105 mmol/L (98-107); Estimated CRCL calculation 79 ml/min; Estimated Glomerular Filt Rate > 60; Glucose 87 mg/dL (75-110); Potassium 3.6 mmol/L (3.4-5.0); Sodium 136 mmol/L (137-145)
--- NOTE | 2020-02-26 09:56 | PCSTNOTE ---
Please refer to the Bedside Swallow Evaluation in the EMR.
--- NOTE | 2020-02-26 10:01 | PM.IMPN ---
Progress Note: A&P Assessment and Plan (1) Aspiration into airway: Qualifiers: Encounter type: initial encounter Qualified Code(s): T17.908A - Unspecified foreign body in respiratory tract, part unspecified causing other injury, initial encounter Code(s): T17.908A - Unspecified foreign body in respiratory tract, part unspecified causing other injury, initial encounter Status: Acute Assessment and Plan: Likely due to altered mental status related to alcohol withdrawal as no focal findings on exam Swallow eval CXR 02/24 w/o acute change 02/24 Held sedation 02/25 Did not participate in swallowing evaluation, IV fluids begun 02/25 Leukocytosis 02/25 Zosyn day 1 (2) Alcohol withdrawal: Qualifiers: Complication of substance-induced condition: uncomplicated Qualified Code(s): F10.230 - Alcohol dependence with withdrawal, uncomplicated Code(s): F10.239 - Alcohol dependence with withdrawal, unspecified Status: Acute Assessment and Plan: 02/21 CIWA scores from teens to low 20s 02/21 Added p.r.n. haloperidol, increased chlordiazepoxide to 100 mg every 6 hours, increased lorazepam to 2 mg IV q.2 hours p.r.n. 02/21 Discussed with nursing staff that if these measures are ineffective with the transferred to intensive care for Precedex IV 02/23 Symptoms well controlled on day 4 without alcohol and planned to wean sedation 02/24. 02/24 Stop chlordiazepoxide, continue prn lorazepam 02/25 A little more awake, CT brain done but no official reading, no acute stroke or bleed apparent (3) Acute exacerbation of chronic obstructive pulmonary disease: Code(s): J44.1 - Chronic obstructive pulmonary disease with (acute) exacerbation Status: Acute Assessment and Plan: 02/22 Transitioned to p.o. steroids Continue bronchodilators (4) Suspected 2019-nCoV infection: Code(s): Z20.828 - Contact with and (suspected) exposure to other viral communicable diseases Status: Acute Assessment and Plan: Negative (5) Depression: Qualifiers: Depression Type: unspecified Qualified Code(s): F32.9 - Major depressive disorder, single episode, unspecified Code(s): F32.9 - Major depressive disorder, single episode, unspecified Status: Chronic Assessment and Plan: Continue with patient's sertraline. (6) Hypertension: Qualifiers: Hypertension type: unspecified Qualified Code(s): I10 - Essential (primary) hypertension Code(s): I10 - Essential (primary) hypertension Status: Chronic Assessment and Plan: Continue with Norvasc. (7) Peripheral artery disease: Code(s): I73.9 - Peripheral vascular disease, unspecified Status: Acute Assessment and Plan: Patient has mild decrease an [place] to the left leg. (8) Neuropathy: Code(s): G62.9 - Polyneuropathy, unspecified Status: Acute Assessment and Plan: Continue Gabapentin Subjective Date/time seen: 02/26/20 10:01 Interval history: Admitted 02/20 with alcohol withdrawal. Last drink 02/19. 02/25. More awake but still in able to participate in swallowing study. Review of Systems Review of Systems: ROS unobtainable: Yes unobtainable due to medical condition Exam Narrative: Exam Narrative: HEENT: PERRL, sclerae nonicteric, pharyngeal mucosa pink and intact NECK: No JVD CHEST: Coarse rhonchi. Normal effort. HEART: NL S1/S2, regular, no murmur ABDOMEN: BS+, soft, nontender, no mass, no bruits EXTREMITIES: No cyanosis, edema, or clubbing NEUROLOGIC: CN intact and symmetric to inspection. MUSCULOSKELETAL: Tone and strength symmetric. PSYCH: Drowsy but arouses easily. Ox1. Follow simple commands. Objective Data Vital Signs Vital Signs: Vital Signs - 24 hr 02/25/20 14:00 02/25/20 15:18 02/25/20 15:25 Temperature 97.4 F L Pulse Rate 78 Respiratory Rate 18 Blood Pressure 104/70 Pulse Oximetry 98 86 L 98
[2020-02-26] MEDS: KCL 20MEQ/0.9% SOD CHL 1,000 ML 60 ML IV CONT (17:23)
[2020-02-27] VITALS (8 sets, daily range): BP systolic 100–128; BP diastolic 62–79; PULSE 53–99; RESP 18–24; TEMP 36.3–36.7; O2SAT 91–100
[2020-02-27 06:31] LABS: Hematocrit 35.5 % (42.0-52.0); Hemoglobin 11.5 g/dL (14.0-18.0); Mean Corpuscular HGB Conc 32.4 g/dl (32-36); Mean Corpuscular Hemoglobin 34.1 pg (26-34); Mean Corpuscular Volume 105.3 fl (80-100); Mean Platelet Volume 10.9 fl (7.4-10.4); Platelet Count Result 221 k/mm3 (150-375); Red Blood Count 3.37 M/mm3 (4.6-6.20); Red Cell Distribution Width 13.4 % (11.5-14.5); White Blood Count 14.2 K/mm3 (4.5-10.0)
[2020-02-27 06:40] LABS: Alanine Aminotransferase 66 U/L (4-50); Albumin Level 3.3 g/dL (3.5-5.1); Alkaline Phosphatase 361 U/L (38-126); Aspartate Amino Transferase 84 U/L (17-59); Bilirubin,Total 1.9 mg/dL (0.2-1.3); Blood Urea Nitrogen 22 mg/dL (9-20); Calcium 8.9 mg/dL (8.4-10.2); Carbon Dioxide 23 mmol/L (22-30); Chloride 110 mmol/L (98-107); Estimated CRCL calculation 70 ml/min; Estimated Glomerular Filt Rate > 60; Glucose 96 mg/dL (75-110); Potassium 3.7 mmol/L (3.4-5.0); Sodium 138 mmol/L (137-145)
--- NOTE | 2020-02-27 09:03 | PM.IMPN ---
Progress Note: A&P Assessment and Plan (1) Aspiration into airway: Qualifiers: Encounter type: initial encounter Qualified Code(s): T17.908A - Unspecified foreign body in respiratory tract, part unspecified causing other injury, initial encounter Code(s): T17.908A - Unspecified foreign body in respiratory tract, part unspecified causing other injury, initial encounter Status: Acute Assessment and Plan: Likely due to altered mental status related to alcohol withdrawal as no focal findings on exam Swallow eval CXR 02/24 w/o acute change 02/24 Held sedation 02/25 Did not participate in swallowing evaluation, IV fluids begun 02/25 Leukocytosis 02/26 Zosyn day 2 (2) Alcohol withdrawal: Qualifiers: Complication of substance-induced condition: uncomplicated Qualified Code(s): F10.230 - Alcohol dependence with withdrawal, uncomplicated Code(s): F10.239 - Alcohol dependence with withdrawal, unspecified Status: Acute Assessment and Plan: 02/21 CIWA scores from teens to low 20s 02/21 Added p.r.n. haloperidol, increased chlordiazepoxide to 100 mg every 6 hours, increased lorazepam to 2 mg IV q.2 hours p.r.n. 02/21 Discussed with nursing staff that if these measures are ineffective with the transferred to intensive care for Precedex IV 02/23 Symptoms well controlled on day 4 without alcohol and planned to wean sedation 02/24. 02/24 Stop chlordiazepoxide, continue prn lorazepam 02/25 A little more awake, CT brain done but no official reading, no acute stroke or bleed apparent 02/26 More awake, CT w/o stroke or bleed (official reading) (3) Acute exacerbation of chronic obstructive pulmonary disease: Code(s): J44.1 - Chronic obstructive pulmonary disease with (acute) exacerbation Status: Acute Assessment and Plan: 02/22 Transitioned to p.o. steroids Continue bronchodilators (4) Alcoholic hepatitis: Qualifiers: Ascites presence: without ascites Qualified Code(s): K70.10 - Alcoholic hepatitis without ascites Code(s): K70.10 - Alcoholic hepatitis without ascites Status: Acute Assessment and Plan: 02/26 LFTs improving (5) Depression: Qualifiers: Depression Type: unspecified Qualified Code(s): F32.9 - Major depressive disorder, single episode, unspecified Code(s): F32.9 - Major depressive disorder, single episode, unspecified Status: Chronic Assessment and Plan: Continue sertraline. (6) Hypertension: Qualifiers: Hypertension type: unspecified Qualified Code(s): I10 - Essential (primary) hypertension Code(s): I10 - Essential (primary) hypertension Status: Chronic Assessment and Plan: Hold Norvasc. (7) Peripheral artery disease: Code(s): I73.9 - Peripheral vascular disease, unspecified Status: Acute Assessment and Plan: Patient has mild decrease an [place] to the left leg. (8) Neuropathy: Code(s): G62.9 - Polyneuropathy, unspecified Status: Acute Assessment and Plan: Hold Gabapentin (9) Suspected 2019-nCoV infection: Code(s): Z20.828 - Contact with and (suspected) exposure to other viral communicable diseases Status: Acute Assessment and Plan: Negative Subjective Date/time seen: 02/27/20 09:03 Interval history: Admitted 02/20 with alcohol withdrawal. Last drink 02/19. 02/26. More awake and answering questions. But drowsy when seen by ST. Denied pain. Denied SOB. Denied n/v/diarrhea. Denied itching. Denied bleeding. Review of Systems Review of Systems: All systems reviewed & are unremarkable except as noted in HPI and below Exam Narrative: Exam Narrative: HEENT: PERRL, sclerae nonicteric, pharyngeal mucosa pink and intact NECK: No JVD CHEST: Coarse rhonchi. Normal effort. HEART: NL S1/S2, regular, no murmur ABDOMEN: BS+, soft, nontender, no mass, no bruits EXTREMITIES: No cyanosis, alba
--- NOTE | 2020-02-27 10:28 | PCSTNOTE ---
Please refer to the Bedside Swallow Evaluation in the EMR.
[2020-02-27] MEDS: KCL 20MEQ/0.9% SOD CHL 1,000 ML 60 ML IV CONT (11:41)
--- NOTE | 2020-02-27 13:06 | PCNFU ---
Nutrition Follow-Up Complete: Underweight likely related to excessive alcohol intake as evidenced by BMI of 17.6. Patient to consume 75% of meals/supplements Limited progress towards goal. We will continue curret goal Pt current nutrition is NPO . Nutrition recommendation: Plans for swallowing eval when appropriate to determine feeding method. Last recorded weight is 55.7 kg. Bowel Motility:No BM reported on admit. Labs Reviewed:BUN 22,Alb 3.3 Meds Noted:KCL 1000 ml at 60 ml/hr Additional Notes: Spoke with nursing today for nutrition follow up due to COVID 19 precautions. Patient is currently NPO x 2 days. Speech therapy did assess patient today recommending to continue NPO status. I called Dr. Augustine today, he hopes to give patient 1 more day NPO and gain some more alertness back. Monitoring: labs,weight,PO intake every 3 days.
[2020-02-28] MEDS: KCL 20MEQ/0.9% SOD CHL 1,000 ML 60 ML IV CONT ×2 (05:19→21:09)
[2020-02-28 06:00] VITALS: BP 134/90; PULSE 88; RESP 18; TEMP 36.6; O2SAT 97
[2020-02-28 06:28] LABS: Hematocrit 34.4 % (42.0-52.0); Mean Corpuscular Hemoglobin 34.4 pg (26-34); Mean Corpuscular Volume 107.5 fl (80-100); Mean Platelet Volume 10.8 fl (7.4-10.4); Platelet Count Result 244 k/mm3 (150-375); Red Cell Distribution Width 13.1 % (11.5-14.5); White Blood Count 11.5 K/mm3 (4.5-10.0)
[2020-02-28 06:33] LABS: Alanine Aminotransferase 59 U/L (4-50); Albumin Level 3.3 g/dL (3.5-5.1); Alkaline Phosphatase 363 U/L (38-126); Aspartate Amino Transferase 69 U/L (17-59); Bilirubin,Total 1.8 mg/dL (0.2-1.3); Blood Urea Nitrogen 13 mg/dL (9-20); Calcium 8.9 mg/dL (8.4-10.2); Carbon Dioxide 22 mmol/L (22-30); Chloride 113 mmol/L (98-107); Estimated CRCL calculation 79 ml/min; Estimated Glomerular Filt Rate > 60; Glucose 79 mg/dL (75-110); Potassium 3.8 mmol/L (3.4-5.0); Sodium 140 mmol/L (137-145)
--- NOTE | 2020-02-28 11:42 | PCSTNOTE ---
Please refer to the Modified Barium Swallow Evaluation in the EMR.
[2020-02-28 14:57] VITALS: BP 134/90; PULSE 104; RESP 18; TEMP 36.4; O2SAT 100
--- NOTE | 2020-02-28 16:42 | PCDIET ---
Nutrition Follow-Up Complete: Underweight likely related to excessive alcohol intake as evidenced by BMI of 17.6. Patient to consume 75% of meals/supplements Goal:Goal unable to be met at this time due to failed MBS Pt current nutrition is NPO Nutrition recommendation: Initiate EN of Jevity 1.2 advancing slowly to goal of 75ml/hr (see notes below) Last recorded weight is 55.7 kg. Bowel Motility: Labs Reviewed:Albumin 3.3, Bilirubin 1.8, AST/ALT 69/59 Meds Noted: Ativan, Zosyn, KCL Additional Notes: Pt with failed MBS today. Due to most likely malnourished state, recommend starting EN slowly at 10ml/hr, advancing 10ml q 6hrs to reach goal of 75ml/hr over approx two days. Recommend monitoring PO4, K, Na, glucose for tolerance. Over 22hrs, at goal of 75ml/hr, pt will receive 1980 kcals, 92g protein, and 1332ml of free water. We will monitor pt feeding plan, intake, wt, labs daily.
--- NOTE | 2020-02-28 17:01 | PM.IMPN ---
Progress Note: A&P Assessment and Plan (1) Aspiration into airway: Qualifiers: Encounter type: initial encounter Qualified Code(s): T17.908A - Unspecified foreign body in respiratory tract, part unspecified causing other injury, initial encounter Code(s): T17.908A - Unspecified foreign body in respiratory tract, part unspecified causing other injury, initial encounter Status: Acute Assessment and Plan: Likely due to altered mental status related to alcohol withdrawal as no focal findings on exam Swallow eval unable to complete today will follow-up in a few days when mental status and strength has improved CXR 02/24 w/o acute change 02/24 Held sedation 02/25 Leukocytosis mild 02/27 Zosyn day 3 (2) Alcohol withdrawal: Qualifiers: Complication of substance-induced condition: uncomplicated Qualified Code(s): F10.230 - Alcohol dependence with withdrawal, uncomplicated Code(s): F10.239 - Alcohol dependence with withdrawal, unspecified Status: Acute Assessment and Plan: 02/21 CIWA scores from teens to low 20s 02/21 Added p.r.n. haloperidol, increased chlordiazepoxide to 100 mg every 6 hours, increased lorazepam to 2 mg IV q.2 hours p.r.n. 02/21 Discussed with nursing staff that if these measures are ineffective with the transferred to intensive care for Precedex IV 02/23 Symptoms well controlled on day 4 without alcohol and planned to wean sedation 02/24. 02/24 Stop chlordiazepoxide, continue prn lorazepam 02/25 A little more awake, CT brain done but no official reading, no acute stroke or bleed apparent 02/26 More awake, CT w/o stroke or bleed (official reading) 02/27 talking more but still somewhat confused and weak (3) Acute exacerbation of chronic obstructive pulmonary disease: Code(s): J44.1 - Chronic obstructive pulmonary disease with (acute) exacerbation Status: Acute Assessment and Plan: 02/22 Transitioned to p.o. steroids Continue bronchodilators (4) Alcoholic hepatitis: Qualifiers: Ascites presence: without ascites Qualified Code(s): K70.10 - Alcoholic hepatitis without ascites Code(s): K70.10 - Alcoholic hepatitis without ascites Status: Acute Assessment and Plan: 02/26 LFTs improving (5) Depression: Qualifiers: Depression Type: unspecified Qualified Code(s): F32.9 - Major depressive disorder, single episode, unspecified Code(s): F32.9 - Major depressive disorder, single episode, unspecified Status: Chronic Assessment and Plan: Continue sertraline. (6) Hypertension: Qualifiers: Hypertension type: unspecified Qualified Code(s): I10 - Essential (primary) hypertension Code(s): I10 - Essential (primary) hypertension Status: Chronic Assessment and Plan: BP slowly rising probably restart amlodipine 02/28 (7) Peripheral artery disease: Code(s): I73.9 - Peripheral vascular disease, unspecified Status: Acute Assessment and Plan: Patient has mild decrease an [place] to the left leg. (8) Neuropathy: Code(s): G62.9 - Polyneuropathy, unspecified Status: Acute Assessment and Plan: Holding Gabapentin (9) Suspected 2019-nCoV infection: Code(s): Z20.828 - Contact with and (suspected) exposure to other viral communicable diseases Status: Acute Assessment and Plan: Negative Subjective Date/time seen: 02/28/20 17:01 Interval history: Admitted 02/20 with alcohol withdrawal. Last drink 02/19. 02/27. More awake and answering questions. But weak when seen by ST and difficuilt following through with test of MBS. Denied pain. Denied SOB. Denied n/v/diarrhea. Denied itching. Denied bleeding. Exam Narrative: Exam Narrative: Blood pressure 134/90 pulse is 100 saturating 100% on 4 L nasal cannula afebrile HEENT: PERRL, sclerae nonicteric, NECK: No JVD CHEST: Coarse rhonchi. With faint crackle in r
[2020-02-29 02:00] VITALS: BP 113/77; PULSE 78; RESP 16; TEMP 36.2; O2SAT 98
[2020-02-29 06:00] VITALS: BP 135/76; PULSE 86; RESP 18; TEMP 36.4; O2SAT 100
[2020-02-29 06:06] LABS: Hematocrit 35.6 % (42.0-52.0); Hemoglobin 11.5 g/dL (14.0-18.0); Mean Corpuscular HGB Conc 32.3 g/dl (32-36); Mean Corpuscular Hemoglobin 34.2 pg (26-34); Mean Platelet Volume 10.5 fl (7.4-10.4); Platelet Count Result 315 k/mm3 (150-375); Red Blood Count 3.36 M/mm3 (4.6-6.20); Red Cell Distribution Width 13.2 % (11.5-14.5); White Blood Count 9.7 K/mm3 (4.5-10.0)
[2020-02-29 06:30] LABS: Alanine Aminotransferase 50 U/L (4-50); Albumin Level 3.4 g/dL (3.5-5.1); Alkaline Phosphatase 346 U/L (38-126); Aspartate Amino Transferase 62 U/L (17-59); Bilirubin,Total 1.6 mg/dL (0.2-1.3); Blood Urea Nitrogen 7 mg/dL (9-20); Carbon Dioxide 25 mmol/L (22-30); Chloride 109 mmol/L (98-107); Estimated CRCL calculation 91 ml/min; Estimated Glomerular Filt Rate > 60; Glucose 65 mg/dL (75-110); Potassium 3.6 mmol/L (3.4-5.0); Sodium 138 mmol/L (137-145)
--- NOTE | 2020-02-29 10:02 | PCNFU ---
Nutrition Follow-Up Complete: Underweight likely related to excessive alcohol intake as evidenced by BMI of 17.6. Patient to consume 75% of meals/supplements unable to meet goal at this time due to failed MBS. Pt current nutrition is NPO x 4. Nutrition recommendation: Tube feedings of Jevity 1.2 Last recorded weight is 55.7 kg. Bowel Motility:No BM reported. Labs Reviewed:Cr 0.6, BUN 7,Alb 3.4 Meds Noted:KCL 1000 ml at 60 ml/hr Additional Notes: Spoke with nursing and MD today over telephone due to COVID 19 precautions. Patient had MBS yesterday failed. Plans for a repeat MBS on or Thursday this week. Tube feeding was discussed. Patient has been confused, tube feedings would more than likely not be appropriate at this time. Tube feedings recommendations would be as follows, slowly Jevity 1.2 at 10ml/hr, advancing 10ml q 6hrs to reach goal of 75ml/hr over approx two days. Over 22hrs, at goal of 75ml/hr, pt will receive 1980 kcals, 92g protein, and 1332ml of free water. Monitoring: Follow up in 3 days.
[2020-02-29] MEDS: KCL 20MEQ/0.9% SOD CHL 1,000 ML 60 ML IV CONT (13:08)
[2020-02-29 14:00] VITALS: BP 135/78; PULSE 81; RESP 18; TEMP 36.6; O2SAT 100
--- NOTE | 2020-02-29 16:16 | P.PNIM_ITS ---
Progress Note: A&P Assessment and Plan (1) Aspiration into airway: Qualifiers: Encounter type: initial encounter Qualified Code(s): T17.908A - Unspecified foreign body in respiratory tract, part unspecified causing other injury, initial encounter Code(s): T17.908A - Unspecified foreign body in respiratory tract, part unspecified causing other injury, initial encounter Status: Acute Assessment and Plan: * Likely due to altered mental status related to alcohol withdrawal as no focal findings on exam * Swallow eval unable to complete 02/27 will follow-up when mental status and strength has improved * CXR 02/24 w/o acute change * 02/24 Held sedation * 02/25 Leukocytosis mild and resolved toay 02/27 * 02/28 Zosyn day 4 (2) Alcohol withdrawal: Qualifiers: Complication of substance-induced condition: uncomplicated Qualified Code(s): F10.230 - Alcohol dependence with withdrawal, uncomplicated Code(s): F10.239 - Alcohol dependence with withdrawal, unspecified Status: Acute Assessment and Plan: * 02/21 CIWA scores from teens to low 20s * 02/21 Added p.r.n. haloperidol, increased chlordiazepoxide to 100 mg every 6 hours, increased lorazepam to 2 mg IV q.2 hours p.r.n. * 02/21 Discussed with nursing staff that if these measures are ineffective with the transferred to intensive care for Precedex IV * 02/23 Symptoms well controlled on day 4 without alcohol and planned to wean sedation 02/24. * 02/24 Stop chlordiazepoxide, continue prn lorazepam * 02/25 A little more awake, CT brain done but no official reading, no acute stroke or bleed apparent * 02/26 More awake, CT w/o stroke or bleed (official reading) * 02/27 talking more but still somewhat confused and weak * 02/28 walking short distance with PT, more alert but still confused (3) Acute exacerbation of chronic obstructive pulmonary disease: Code(s): J44.1 - Chronic obstructive pulmonary disease with (acute) exacerbation Status: Acute Assessment and Plan: * 02/22 Transitioned to p.o. steroids and tapering * Continue bronchodilators (4) Alcoholic hepatitis: Qualifiers: Ascites presence: without ascites Qualified Code(s): K70.10 - Alcoholic hepatitis without ascites Code(s): K70.10 - Alcoholic hepatitis without ascites Status: Acute Assessment and Plan: * 02/26 LFTs improving * 02/28 slow trending down (5) Depression: Qualifiers: Depression Type: unspecified Qualified Code(s): F32.9 - Major depressive disorder, single episode, unspecified Code(s): F32.9 - Major depressive disorder, single episode, unspecified Status: Chronic Assessment and Plan: Continue sertraline. (6) Hypertension: Qualifiers: Hypertension type: unspecified Qualified Code(s): I10 - Essential (primary) hypertension Code(s): I10 - Essential (primary) hypertension Status: Chronic Assessment and Plan: BP slowly rising restarted amlodipine 02/28 (7) Peripheral artery disease: Code(s): I73.9 - Peripheral vascular disease, unspecified Status: Acute Assessment and Plan: Patient has mild decrease an [place] to the left leg. (8) Neuropathy: Code(s): G62.9 - Polyneuropathy, unspecified Status: Acute Assessment and Plan: Holding Gabapentin (9) Suspected 2019-nCoV infection: Code(s): Z20.828 - Contact with and (suspected) exposure to other viral communicable diseases Status: Acute Assessment and Plan: Negative Subjectiv
--- NOTE | 2020-02-29 16:16 | PM.IMPN ---
Progress Note: A&P Assessment and Plan (1) Aspiration into airway: Qualifiers: Encounter type: initial encounter Qualified Code(s): T17.908A - Unspecified foreign body in respiratory tract, part unspecified causing other injury, initial encounter Code(s): T17.908A - Unspecified foreign body in respiratory tract, part unspecified causing other injury, initial encounter Status: Acute Assessment and Plan: Likely due to altered mental status related to alcohol withdrawal as no focal findings on exam Swallow eval unable to complete 02/27 will follow-up when mental status and strength has improved CXR 02/24 w/o acute change 02/24 Held sedation 02/25 Leukocytosis mild and resolved toay 02/27 02/28 Zosyn day 4 (2) Alcohol withdrawal: Qualifiers: Complication of substance-induced condition: uncomplicated Qualified Code(s): F10.230 - Alcohol dependence with withdrawal, uncomplicated Code(s): F10.239 - Alcohol dependence with withdrawal, unspecified Status: Acute Assessment and Plan: 02/21 CIWA scores from teens to low 20s 02/21 Added p.r.n. haloperidol, increased chlordiazepoxide to 100 mg every 6 hours, increased lorazepam to 2 mg IV q.2 hours p.r.n. 02/21 Discussed with nursing staff that if these measures are ineffective with the transferred to intensive care for Precedex IV 02/23 Symptoms well controlled on day 4 without alcohol and planned to wean sedation 02/24. 02/24 Stop chlordiazepoxide, continue prn lorazepam 02/25 A little more awake, CT brain done but no official reading, no acute stroke or bleed apparent 02/26 More awake, CT w/o stroke or bleed (official reading) 02/27 talking more but still somewhat confused and weak 02/28 walking short distance with PT, more alert but still confused (3) Acute exacerbation of chronic obstructive pulmonary disease: Code(s): J44.1 - Chronic obstructive pulmonary disease with (acute) exacerbation Status: Acute Assessment and Plan: 02/22 Transitioned to p.o. steroids and tapering Continue bronchodilators (4) Alcoholic hepatitis: Qualifiers: Ascites presence: without ascites Qualified Code(s): K70.10 - Alcoholic hepatitis without ascites Code(s): K70.10 - Alcoholic hepatitis without ascites Status: Acute Assessment and Plan: 5/18 LFTs improving 02/28 slow trending down (5) Depression: Qualifiers: Depression Type: unspecified Qualified Code(s): F32.9 - Major depressive disorder, single episode, unspecified Code(s): F32.9 - Major depressive disorder, single episode, unspecified Status: Chronic Assessment and Plan: Continue sertraline. (6) Hypertension: Qualifiers: Hypertension type: unspecified Qualified Code(s): I10 - Essential (primary) hypertension Code(s): I10 - Essential (primary) hypertension Status: Chronic Assessment and Plan: BP slowly rising restarted amlodipine 02/28 (7) Peripheral artery disease: Code(s): I73.9 - Peripheral vascular disease, unspecified Status: Acute Assessment and Plan: Patient has mild decrease an [place] to the left leg. (8) Neuropathy: Code(s): G62.9 - Polyneuropathy, unspecified Status: Acute Assessment and Plan: Holding Gabapentin (9) Suspected 2019-nCoV infection: Code(s): Z20.828 - Contact with and (suspected) exposure to other viral communicable diseases Status: Acute Assessment and Plan: Negative Subjective Date/time seen: 02/29/20 16:16 Interval history: Admitted 02/20 with alcohol withdrawal. Last drink 02/19. 02/28. More awake and answering questions. But weak when seen by ST and difficuilt following through with test of MBS.02/27 Up in chair today Denied pain. Denied SOB. Denied n/v/diarrhea. Denied itching. Denied bleeding. Exam Narrative: Exam Narrative: Blood pressure 134/78 pulse is 86 satura
[2020-02-29 22:00] VITALS: BP 136/77; PULSE 83; RESP 20; TEMP 36.5; O2SAT 100
[2020-03-01 06:00] VITALS: BP 111/84; PULSE 74; RESP 22; TEMP 36.1; O2SAT 100
[2020-03-01] MEDS: KCL 20MEQ/0.9% SOD CHL 1,000 ML 60 ML IV CONT (09:11)
[2020-03-01 10:38] LABS: Glucose Point of Care 49 (65-105)
[2020-03-01 10:44] LABS: Blood Urea Nitrogen 6 mg/dL (9-20); Calcium 8.9 mg/dL (8.4-10.2); Carbon Dioxide 19 mmol/L (22-30); Estimated CRCL calculation 107 ml/min; Estimated Glomerular Filt Rate > 60; Potassium 4.7 mmol/L (3.4-5.0); Sodium 138 mmol/L (137-145)
[2020-03-01] MEDS: THIAMINE HCL 200 MG/2 ML VIAL 100 MG IV PUSH ×2 (11:28→18:00)
[2020-03-01] MEDS: DEXTROSE 50% 25 GM/50 ML SYRINGE IV PUSH (11:31)
[2020-03-01] MEDS: DEXTROSE 5%/0.9% SOD CHL 1,000 ML 60 ML IV CONT (11:32)
[2020-03-01 12:11] LABS: Glucose Point of Care 121 (65-105)
[2020-03-01 14:00] VITALS: BP 135/87; PULSE 84; RESP 18; TEMP 36.3; O2SAT 98
--- NOTE | 2020-03-01 15:37 | PCSTNOTE ---
Please refer to the Modified Barium Swallow Evaluation in the EMR.
--- NOTE | 2020-03-01 16:12 | P.PNIM_ITS ---
Progress Note: A&P Assessment and Plan (1) Aspiration into airway: Qualifiers: Encounter type: initial encounter Qualified Code(s): T17.908A - Unspecified foreign body in respiratory tract, part unspecified causing other injury, initial encounter Code(s): T17.908A - Unspecified foreign body in respiratory tract, part unspecified causing other injury, initial encounter Status: Acute Assessment and Plan: * Likely due to altered mental status related to alcohol withdrawal as no focal findings on exam * Swallow eval unable to complete 02/27 will follow-up when mental status and strength has improved * CXR 02/24 w/o acute change * 02/24 Held sedation * 02/25 Leukocytosis mild and resolved toay 02/27 * 02/28 Zosyn day 5 and will d/c after today * 03/01 passed swallow test for pureed per ST with thin liquids (2) Alcohol withdrawal: Qualifiers: Complication of substance-induced condition: uncomplicated Qualified Code(s): F10.230 - Alcohol dependence with withdrawal, uncomplicated Code(s): F10.239 - Alcohol dependence with withdrawal, unspecified Status: Acute Assessment and Plan: * 02/21 CIWA scores from teens to low 20s * 02/21 Added p.r.n. haloperidol, increased chlordiazepoxide to 100 mg every 6 hours, increased lorazepam to 2 mg IV q.2 hours p.r.n. * 02/21 Discussed with nursing staff that if these measures are ineffective with the transferred to intensive care for Precedex IV * 02/23 Symptoms well controlled on day 4 without alcohol and planned to wean sedation 02/24. * 02/24 Stop chlordiazepoxide, continue prn lorazepam * 02/25 A little more awake, CT brain done but no official reading, no acute stroke or bleed apparent * 02/26 More awake, CT w/o stroke or bleed (official reading) * 02/27 talking more but still somewhat confused and weak * 02/28 , 03/01walking short distance with PT, more alert but still confused (3) Acute exacerbation of chronic obstructive pulmonary disease: Code(s): J44.1 - Chronic obstructive pulmonary disease with (acute) exacerbation Status: Acute Assessment and Plan: * 02/22 Transitioned to p.o. steroids and none for 3 days since NPO and will d/c with no wheezing and good 02 sats * Continue bronchodilators (4) Alcoholic hepatitis: Qualifiers: Ascites presence: without ascites Qualified Code(s): K70.10 - Alcoholic hepatitis without ascites Code(s): K70.10 - Alcoholic hepatitis without ascites Status: Acute Assessment and Plan: * 02/26 LFTs improving * 02/28 slow trending down, recheck am (5) Depression: Qualifiers: Depression Type: unspecified Qualified Code(s): F32.9 - Major depressive disorder, single episode, unspecified Code(s): F32.9 - Major depressive disorder, single episode, unspecified Status: Chronic Assessment and Plan: Continue sertraline. (6) Hypertension: Qualifiers: Hypertension type: unspecified Qualified Code(s): I10 - Essential (primary) hypertension Code(s): I10 - Essential (primary) hypertension Status: Chronic Assessment and Plan: BP slowly rising restarted amlodipine 03/01 at 1/2 dose of 5 mg daily (7) Peripheral artery disease: Code(s): I73.9 - Peripheral vascular disease, unspecified Status: Acute Assessment and Plan: Patient has mild decrease an [place] to the left leg. (8) Neuropathy: Code(s): G62.9 - Polyneuropathy, unspecified Status: Acute Assessment and Plan: Holding Gabapentin (9) Suspected 2019-nCoV infection:
--- NOTE | 2020-03-01 16:12 | PM.IMPN ---
Progress Note: A&P Assessment and Plan (1) Aspiration into airway: Qualifiers: Encounter type: initial encounter Qualified Code(s): T17.908A - Unspecified foreign body in respiratory tract, part unspecified causing other injury, initial encounter Code(s): T17.908A - Unspecified foreign body in respiratory tract, part unspecified causing other injury, initial encounter Status: Acute Assessment and Plan: Likely due to altered mental status related to alcohol withdrawal as no focal findings on exam Swallow eval unable to complete 02/27 will follow-up when mental status and strength has improved CXR 02/24 w/o acute change 02/24 Held sedation 02/25 Leukocytosis mild and resolved toay 02/27 02/28 Zosyn day 5 and will d/c after today 03/01 passed swallow test for pureed per ST with thin liquids (2) Alcohol withdrawal: Qualifiers: Complication of substance-induced condition: uncomplicated Qualified Code(s): F10.230 - Alcohol dependence with withdrawal, uncomplicated Code(s): F10.239 - Alcohol dependence with withdrawal, unspecified Status: Acute Assessment and Plan: 02/21 CIWA scores from teens to low 20s 02/21 Added p.r.n. haloperidol, increased chlordiazepoxide to 100 mg every 6 hours, increased lorazepam to 2 mg IV q.2 hours p.r.n. 02/21 Discussed with nursing staff that if these measures are ineffective with the transferred to intensive care for Precedex IV 02/23 Symptoms well controlled on day 4 without alcohol and planned to wean sedation 02/24. 02/24 Stop chlordiazepoxide, continue prn lorazepam 02/25 A little more awake, CT brain done but no official reading, no acute stroke or bleed apparent 02/26 More awake, CT w/o stroke or bleed (official reading) 02/27 talking more but still somewhat confused and weak 02/28 , 03/01walking short distance with PT, more alert but still confused (3) Acute exacerbation of chronic obstructive pulmonary disease: Code(s): J44.1 - Chronic obstructive pulmonary disease with (acute) exacerbation Status: Acute Assessment and Plan: 02/22 Transitioned to p.o. steroids and none for 3 days since NPO and will d/c with no wheezing and good 02 sats Continue bronchodilators (4) Alcoholic hepatitis: Qualifiers: Ascites presence: without ascites Qualified Code(s): K70.10 - Alcoholic hepatitis without ascites Code(s): K70.10 - Alcoholic hepatitis without ascites Status: Acute Assessment and Plan: 02/26 LFTs improving 02/28 slow trending down, recheck am (5) Depression: Qualifiers: Depression Type: unspecified Qualified Code(s): F32.9 - Major depressive disorder, single episode, unspecified Code(s): F32.9 - Major depressive disorder, single episode, unspecified Status: Chronic Assessment and Plan: Continue sertraline. (6) Hypertension: Qualifiers: Hypertension type: unspecified Qualified Code(s): I10 - Essential (primary) hypertension Code(s): I10 - Essential (primary) hypertension Status: Chronic Assessment and Plan: BP slowly rising restarted amlodipine 03/01 at 1/2 dose of 5 mg daily (7) Peripheral artery disease: Code(s): I73.9 - Peripheral vascular disease, unspecified Status: Acute Assessment and Plan: Patient has mild decrease an [place] to the left leg. (8) Neuropathy: Code(s): G62.9 - Polyneuropathy, unspecified Status: Acute Assessment and Plan: Holding Gabapentin (9) Suspected 2019-nCoV infection: Code(s): Z20.828 - Contact with and (suspected) exposure to other viral communicable diseases Status: Acute Assessment and Plan: Negative Subjective Date/time seen: 03/01/20 16:12 Interval history: Admitted 02/20 with alcohol withdrawal. Last drink 02/19. 03/01. More awake and answering questions. But weak when seen by ST and difficuilt following through with test
--- NOTE | 2020-03-01 19:29 | PM.EVENT ---
Event Note Event Note Event Note: Called at 19:20 hrs and informed that this 59 year old was found on the floor during shift change. On my arrival to bedside the patient admits to me that he was trying to get out of bed and slipped and fell. He complains of posterior headache as he did strike the back of his head on the floor. He denies passing out or seizure like activity. He has no other complaints at this time. We will obtain a STAT CT brain at this time. One on one sitter has been ordered.
[2020-03-01 19:32] VITALS: BP 134/83; PULSE 109; TEMP 36.2; O2SAT 97
[2020-03-01 21:47] VITALS: BP 155/97; PULSE 84; RESP 16; TEMP 36.3; O2SAT 100
[2020-03-02 06:00] VITALS: BP 170/86; PULSE 73; RESP 18; TEMP 36.1; O2SAT 99
[2020-03-02 06:28] LABS: Alanine Aminotransferase 32 U/L (4-50); Albumin Level 3.1 g/dL (3.5-5.1); Alkaline Phosphatase 281 U/L (38-126); Aspartate Amino Transferase 40 U/L (17-59); Bilirubin,Total 1.1 mg/dL (0.2-1.3); Blood Urea Nitrogen 4 mg/dL (9-20); Calcium 8.6 mg/dL (8.4-10.2); Carbon Dioxide 22 mmol/L (22-30); Chloride 111 mmol/L (98-107); Estimated CRCL calculation 107 ml/min; Estimated Glomerular Filt Rate > 60; Glucose 111 mg/dL (75-110); Magnesium 1.7 mg/dL (1.6-2.3); Phosphorus 3.5 mg/dL (2.5-4.5); Potassium 3.3 mmol/L (3.4-5.0); Sodium 136 mmol/L (137-145)
[2020-03-02] MEDS: THIAMINE HCL 100 MG TABLET PO (09:10)
[2020-03-02] MEDS: AMLODIPINE BESYLATE 5 MG TABLET PO (09:10)
[2020-03-02] MEDS: SERTRALINE HCL 50 MG TABLET PO (09:10)
[2020-03-02] MEDS: FOLIC ACID 1 MG TABLET PO (09:10)
[2020-03-02] MEDS: POTASSIUM CHLORIDE 20 MEQ PACKET (FOR LIQUID) 40 MEQ PO (09:21)
--- NOTE | 2020-03-02 10:31 | PCNFU ---
Nutrition Follow-Up Complete: Underweight likely related to excessive alcohol intake as evidenced by BMI of 17.6. Goal: Patient to consume 75% of meals/supplements Progressing towards goal. We will continue with current goal. Pt current nutrition is Pureed,Level 4. Nutrition recommendation:Agree Last recorded weight is 55.7 kg. Bowel Motility:NO BM reported Labs Reviewed:Na 136,BUN 4,Cr 0.5,K 3.3 Meds Noted:Dextrose/Sodium Chloride 1000 ml at 60 ml/hr, Folic Acid ,Thiamine. Additional Notes: Spoke with nursing today over telephone due to COVID 19 precautions. Patient had repeat MBS on 03/01-passed recommending Pureed diet with thin liquids. Oral Intake today, 75% of tray. Patient is also receiving Ensure Enlive TID providing an additional 350 kcals and 20 gms protein. Agree with diet orders. Monitoring: Follow up in 5 days.
--- NOTE | 2020-03-02 12:51 | PM.IMPN ---
Progress Note: A&P Assessment and Plan (1) Aspiration into airway: Qualifiers: Encounter type: initial encounter Qualified Code(s): T17.908A - Unspecified foreign body in respiratory tract, part unspecified causing other injury, initial encounter Code(s): T17.908A - Unspecified foreign body in respiratory tract, part unspecified causing other injury, initial encounter Status: Acute Assessment and Plan: CXR 02/24 w/o acute change 02/24 Held sedation 02/25 Leukocytosis mild and resolved 02/27 02/27 Swallow study was unable to be completed and [employer] to follow-up when mental status and strength have improved 02/28 Zosyn day 3 03/01 Passed swallow test for pureed per ST with thin liquids 03/02 The patient is doing well on pureed diet. He consumed 100% of his lunch. Will plan to discontinue zosyn after today. (2) Alcohol withdrawal: Qualifiers: Complication of substance-induced condition: uncomplicated Qualified Code(s): F10.230 - Alcohol dependence with withdrawal, uncomplicated Code(s): F10.239 - Alcohol dependence with withdrawal, unspecified Status: Acute Assessment and Plan: He has a hx of heavy alcohol dependence and was treated for alcohol withdrawal. 02/21 CIWA scores from teens to low 20s 02/21 Added p.r.n. haloperidol, increased chlordiazepoxide to 100 mg every 6 hours, increased lorazepam to 2 mg IV q.2 hours p.r.n. 02/21 Discussed with nursing staff that if these measures are ineffective with the transferred to intensive care for Precedex IV 02/23 Symptoms well controlled on day 4 without alcohol and planned to wean sedation 02/24. 02/24 Stop chlordiazepoxide, continue prn lorazepam 02/25 A little more awake, CT brain done but no official reading, no acute stroke or bleed apparent 02/26 More awake, CT w/o stroke or bleed (official reading) 02/27 Talking more but still somewhat confused and weak 02/28, 03/01 walking short distance with PT, more alert but still confused 03/02 Improving. He is eating well today and finished 100% of his lunch. He ambulated with 40 ft with PT today with moderate assistance and is improving per their evaluation. He is alert and oriented to person, month, year, and state. He does seem somewhat confused at times but is easily reoriented and answers most questions appropriately. (3) Acute exacerbation of chronic obstructive pulmonary disease: Code(s): J44.1 - Chronic obstructive pulmonary disease with (acute) exacerbation Status: Resolved Assessment and Plan: He was treated with IV solu-medrol and switched to PO steroids 02/22 which he completed. He denies dyspnea. His lungs are clear to auscultation without wheezing. He is maintaining adequate oxygen saturation 99% on room air. Continue bronchodilators PRN Continue to monitor (4) Alcoholic hepatitis: Qualifiers: Ascites presence: without ascites Qualified Code(s): K70.10 - Alcoholic hepatitis without ascites Code(s): K70.10 - Alcoholic hepatitis without ascites Status: Acute Assessment and Plan: The patient had transaminitis at presentation with AST 275, ALT 86, ALP 732. LFTs have improved. AST is 40, ALT is 32, and ALP 281 today (03/02). RUQ US revealed diffuse hepatic steatosis. The gallbladder is normal without gallstones or gallbladder wall thickening. Sonographic Lyons sign was negative. His LFT elevation is likely due to alcoholic hepatitis. Hepatitis panel was negative. Continue to monitor (5) Depression: Qualifiers: Depression Type: unspecified Qualified Code(s): F32.9 - Major depressive disorder, single episode, unspecified Code(s): F32.9 - Major depressive disorder, single episode, unspecified Status: Chronic Assessment and Plan: Continue sertraline (6) Hypertension: Qualifiers: Hypertension type: unspecified Qualified Code(s): I10 - Essential (primary)
[2020-03-02 14:20] LABS: Add Urine Microscopic? YES; Appearance Urine Cloudy (Clear); Bilirubin Urine Negative (Negative); Blood Urine 3+ (Negative); Color Urine Amber (Yellow); Glucose Urine UA 3+ mg/dL (Negative); Ketones Urine Trace mg/dL (Negative); Leukocyte Esterase Ur Negative LEU/UL (NEGATIVE); Mucus Urine Rare /lpf; Nitrate Urine Negative (Negative); Protein Urine 1+ mg/dL (Negative); RBC Urine >75 /hpf (0-2)
[2020-03-02 14:21] VITALS: BP 107/67; PULSE 101; RESP 17; TEMP 36.4; O2SAT 99
--- NOTE | 2020-03-02 16:18 | PC.NURSE ---
I spoke with Holly HOOD regarding withdrawal medications- she is aware that Ativan IVP was last given on 02/23. Update given regarding po intake and continued poor dexterity with fine motor skills. Patient up in chair today and participating with therapy. Will continue to monitor. Ativan orders were dced and no further medications ordered at this time.
[2020-03-02] MEDS: NICOTINE (*PBKC) 21 MG PATCH 1 PATCH TRANSDERM (17:46)
[2020-03-02 22:00] VITALS: BP 118/78; PULSE 79; RESP 18; TEMP 36; O2SAT 99
[2020-03-03 06:00] VITALS: BP 121/77; PULSE 77; RESP 18; TEMP 36.2; O2SAT 100
[2020-03-03 07:01] LABS: Glucose Point of Care 106 (65-105)
[2020-03-03 07:45] VITALS: BP 138/86; PULSE 77; RESP 22; TEMP 36.9; O2SAT 98
[2020-03-03 07:48] LABS: Blood Urea Nitrogen 5 mg/dL (9-20); Calcium 8.4 mg/dL (8.4-10.2); Carbon Dioxide 24 mmol/L (22-30); Chloride 108 mmol/L (98-107); Estimated CRCL calculation 91 ml/min; Estimated Glomerular Filt Rate > 60; Glucose 97 mg/dL (75-110); Potassium 3.6 mmol/L (3.4-5.0); Sodium 138 mmol/L (137-145)
[2020-03-03] MEDS: FOLIC ACID 1 MG TABLET PO (07:56)
[2020-03-03] MEDS: THIAMINE HCL 100 MG TABLET PO (07:56)
[2020-03-03] MEDS: SERTRALINE HCL 50 MG TABLET PO (07:57)
[2020-03-03] MEDS: AMLODIPINE BESYLATE 5 MG TABLET PO (07:57)
--- NOTE | 2020-03-03 13:15 | PCSTNOTE ---
Patient would not awaken or even stir with multiple attempts
[2020-03-03 14:00] VITALS: BP 127/76; PULSE 72; RESP 16; TEMP 36.1; O2SAT 97
[2020-03-03] MEDS: NICOTINE (*PBKC) 21 MG PATCH 1 PATCH TRANSDERM (15:40)
--- NOTE | 2020-03-03 16:21 | P.PNIM_ITS ---
Progress Note: A&P Assessment and Plan (1) Aspiration into airway: Qualifiers: Encounter type: initial encounter Qualified Code(s): T17.908A - Unspecified foreign body in respiratory tract, part unspecified causing other injury, initial encounter Code(s): T17.908A - Unspecified foreign body in respiratory tract, part unspecified causing other injury, initial encounter Status: Acute Assessment and Plan: * Likely due to altered mental status related to alcohol withdrawal as no focal findings on exam * Swallow eval unable to complete 02/27 will follow-up when mental status and strength has improved * CXR 02/24 w/o acute change * 02/24 Held sedation * 02/25 Leukocytosis mild and resolved toay 02/27 * 03/01 Zosyn day 5 and will d/c after today * 03/01 passed swallow test for pureed per ST with thin liquids (2) Alcohol withdrawal: Qualifiers: Complication of substance-induced condition: uncomplicated Qualified Code(s): F10.230 - Alcohol dependence with withdrawal, uncomplicated Code(s): F10.239 - Alcohol dependence with withdrawal, unspecified Status: Acute Assessment and Plan: * 02/21 CIWA scores from teens to low 20s * 02/21 Added p.r.n. haloperidol, increased chlordiazepoxide to 100 mg every 6 hours, increased lorazepam to 2 mg IV q.2 hours p.r.n. * 02/21 Discussed with nursing staff that if these measures are ineffective with the transferred to intensive care for Precedex IV * 02/23 Symptoms well controlled on day 4 without alcohol and planned to wean sedation 02/24. * 02/24 Stop chlordiazepoxide, continue prn lorazepam * 02/25 A little more awake, CT brain done but no official reading, no acute stroke or bleed apparent * 02/26 More awake, CT w/o stroke or bleed (official reading) * 02/27 talking more but still somewhat confused and weak * 02/28 , 03/01walking short distance with PT, more alert but still confused * 03/03 slowy regaining strength (3) Acute exacerbation of chronic obstructive pulmonary disease: Code(s): J44.1 - Chronic obstructive pulmonary disease with (acute) exacerbation Status: Resolved Assessment and Plan: * 02/22 Transitioned to p.o. steroids and none for 3 days since NPO and d/thais 03/01 with no wheezing and good 02 sats * Continue bronchodilators (4) Alcoholic hepatitis: Qualifiers: Ascites presence: without ascites Qualified Code(s): K70.10 - Alcoholic hepatitis without ascites Code(s): K70.10 - Alcoholic hepatitis without ascites Status: Acute Assessment and Plan: * 02/26 LFTs improving * 02/28 slow trending down, * 03/02 all normal except alk phos (5) Depression: Qualifiers: Depression Type: unspecified Qualified Code(s): F32.9 - Major depressive disorder, single episode, unspecified Code(s): F32.9 - Major depressive disorder, single episode, unspecified Status: Chronic Assessment and Plan: Continue sertraline. (6) Hypertension: Qualifiers: Hypertension type: unspecified Qualified Code(s): I10 - Essential (primary) hypertension Code(s): I10 - Essential (primary) hypertension Status: Chronic Assessment and Plan: BP slowly rising restarted amlodipine 03/01 at 1/2 dose of 5 mg daily And continues to run will (7) Peripheral artery disease: Code(s): I73.9 - Peripheral vascular disease, unspecified Status: Acute Assessment and Plan: Patient has mild decrease an [place] to the left leg. (8) Neuropathy: Code(s): G62.9 - Polyneuropathy, unspecified Status:
--- NOTE | 2020-03-03 16:21 | PM.IMPN ---
Progress Note: A&P Assessment and Plan (1) Aspiration into airway: Qualifiers: Encounter type: initial encounter Qualified Code(s): T17.908A - Unspecified foreign body in respiratory tract, part unspecified causing other injury, initial encounter Code(s): T17.908A - Unspecified foreign body in respiratory tract, part unspecified causing other injury, initial encounter Status: Acute Assessment and Plan: Likely due to altered mental status related to alcohol withdrawal as no focal findings on exam Swallow eval unable to complete 02/27 will follow-up when mental status and strength has improved CXR 02/24 w/o acute change 02/24 Held sedation 02/25 Leukocytosis mild and resolved toay 02/27 03/01 Zosyn day 5 and will d/c after today 03/01 passed swallow test for pureed per ST with thin liquids (2) Alcohol withdrawal: Qualifiers: Complication of substance-induced condition: uncomplicated Qualified Code(s): F10.230 - Alcohol dependence with withdrawal, uncomplicated Code(s): F10.239 - Alcohol dependence with withdrawal, unspecified Status: Acute Assessment and Plan: 02/21 CIWA scores from teens to low 20s 02/21 Added p.r.n. haloperidol, increased chlordiazepoxide to 100 mg every 6 hours, increased lorazepam to 2 mg IV q.2 hours p.r.n. 02/21 Discussed with nursing staff that if these measures are ineffective with the transferred to intensive care for Precedex IV 02/23 Symptoms well controlled on day 4 without alcohol and planned to wean sedation 02/24. 02/24 Stop chlordiazepoxide, continue prn lorazepam 02/25 A little more awake, CT brain done but no official reading, no acute stroke or bleed apparent 02/26 More awake, CT w/o stroke or bleed (official reading) 02/27 talking more but still somewhat confused and weak 02/28 , 03/01walking short distance with PT, more alert but still confused 03/03 slowy regaining strength (3) Acute exacerbation of chronic obstructive pulmonary disease: Code(s): J44.1 - Chronic obstructive pulmonary disease with (acute) exacerbation Status: Resolved Assessment and Plan: 02/22 Transitioned to p.o. steroids and none for 3 days since NPO and d/thais 03/01 with no wheezing and good 02 sats Continue bronchodilators (4) Alcoholic hepatitis: Qualifiers: Ascites presence: without ascites Qualified Code(s): K70.10 - Alcoholic hepatitis without ascites Code(s): K70.10 - Alcoholic hepatitis without ascites Status: Acute Assessment and Plan: 02/26 LFTs improving 02/28 slow trending down, 03/02 all normal except alk phos (5) Depression: Qualifiers: Depression Type: unspecified Qualified Code(s): F32.9 - Major depressive disorder, single episode, unspecified Code(s): F32.9 - Major depressive disorder, single episode, unspecified Status: Chronic Assessment and Plan: Continue sertraline. (6) Hypertension: Qualifiers: Hypertension type: unspecified Qualified Code(s): I10 - Essential (primary) hypertension Code(s): I10 - Essential (primary) hypertension Status: Chronic Assessment and Plan: BP slowly rising restarted amlodipine 03/01 at 1/2 dose of 5 mg daily And continues to run will (7) Peripheral artery disease: Code(s): I73.9 - Peripheral vascular disease, unspecified Status: Acute Assessment and Plan: Patient has mild decrease an [place] to the left leg. (8) Neuropathy: Code(s): G62.9 - Polyneuropathy, unspecified Status: Acute Assessment and Plan: Holding Gabapentin (9) Suspected 2019-nCoV infection: Code(s): Z20.828 - Contact with and (suspected) exposure to other viral communicable diseases Status: Ruled-out Assessment and Plan: Negative Subjective Date/time seen: 03/03/20 16:21 Interval history: Admitted 02/20 with alcohol withdrawal. Last drink 02/19. 03/03. More awake
[2020-03-03 22:00] VITALS: BP 122/76; PULSE 75; RESP 16; TEMP 36.4; O2SAT 97
[2020-03-04 06:00] VITALS: BP 125/72; PULSE 73; RESP 16; TEMP 36.3; O2SAT 99
[2020-03-04] MEDS: FOLIC ACID 1 MG TABLET PO (08:39)
[2020-03-04] MEDS: THIAMINE HCL 100 MG TABLET PO (08:39)
[2020-03-04] MEDS: SERTRALINE HCL 50 MG TABLET PO (08:39)
[2020-03-04] MEDS: AMLODIPINE BESYLATE 5 MG TABLET PO (08:39)
[2020-03-04 09:52] LABS: Glucose 56 mg/dL (75-110)
--- NOTE | 2020-03-05 18:37 | P.DS_ITS ---
DS: Admitting Diagnosis Admitting Diagnosis Admitting Diagnosis: Chronic obstructive pulmonary disease with (acute) exacerbation DS: Discharge Diagnosis Discharge Diagnosis (1) Aspiration into airway: Qualifiers: Encounter type: initial encounter Qualified Code(s): T17.908A - Unspecified foreign body in respiratory tract, part unspecified causing other injury, initial encounter Code(s): T17.908A - Unspecified foreign body in respiratory tract, part unspecified causing other injury, initial encounter Status: Acute Assessment and Plan: * Likely due to altered mental status related to alcohol withdrawal as no focal findings on exam * Swallow eval unable to complete 02/27 will follow-up when mental status and strength has improved * CXR 02/24 w/o acute change * 02/24 Held sedation * 02/25 Leukocytosis mild and resolved toay 02/27 * 03/01 Zosyn day 5 and will d/c after today * 03/01 passed swallow test for pureed per ST with thin liquids * Lungs clear sat 99% at discharge no cough. Finish course of antibiotics (2) Alcohol withdrawal: Qualifiers: Complication of substance-induced condition: uncomplicated Qualified Code(s): F10.230 - Alcohol dependence with withdrawal, uncomplicated Code(s): F10.239 - Alcohol dependence with withdrawal, unspecified Status: Acute Assessment and Plan: * 02/21 CIWA scores from teens to low 20s * 02/21 Added p.r.n. haloperidol, increased chlordiazepoxide to 100 mg every 6 hours, increased lorazepam to 2 mg IV q.2 hours p.r.n. * 02/21 Discussed with nursing staff that if these measures are ineffective with the transferred to intensive care for Precedex IV * 02/23 Symptoms well controlled on day 4 without alcohol and planned to wean sedation 02/24. * 02/24 Stop chlordiazepoxide, continue prn lorazepam * 02/25 A little more awake, CT brain done but no official reading, no acute stroke or bleed apparent * 02/26 More awake, CT w/o stroke or bleed (official reading) * 02/27 talking more but still somewhat confused and weak * 02/28 , 03/01walking short distance with PT, more alert but still confused * 03/03 slowy regaining strength * 03/04 ambulating with PT and more alert and cognitive each day but still slight ly confused at discharge (3) Acute exacerbation of chronic obstructive pulmonary disease: Code(s): J44.1 - Chronic obstructive pulmonary disease with (acute) exacerbation Status: Resolved Assessment and Plan: * 02/22 Transitioned to p.o. steroids and none for 3 days since NPO and d/thais 03/01 with no wheezing and good 02 sats * Continue bronchodilators (4) Alcoholic hepatitis: Qualifiers: Ascites presence: without ascites Qualified Code(s): K70.10 - Alcoholic hepatitis without ascites Code(s): K70.10 - Alcoholic hepatitis without ascites Status: Acute Assessment and Plan: * 02/26 LFTs improving * 02/28 slow trending down, * 03/02 all normal except alk phos * Ultrasound right upper quadrant showed only hepatic steatosis (5) Depression: Qualifiers: Depression Type: unspecified Qualified Code(s): F32.9 - Major depressive disorder, single episode, unspecified Code(s): F32.9 - Major depressive disorder, single episode, unspecified Status: Chronic Assessment and Plan: Continue sertraline. (6) Hypertension: Qualifiers: Hypertension type: unspecified Qualified Code(s): I10 - Essential (primary) hypertension Code(s): I10 - Essential (primary) hypertension Status: Chronic Assessment and Plan:
--- NOTE | 2020-03-05 18:37 | PM.DS ---
DS: Admitting Diagnosis Admitting Diagnosis Admitting Diagnosis: Chronic obstructive pulmonary disease with (acute) exacerbation DS: Discharge Diagnosis Discharge Diagnosis (1) Aspiration into airway: Qualifiers: Encounter type: initial encounter Qualified Code(s): T17.908A - Unspecified foreign body in respiratory tract, part unspecified causing other injury, initial encounter Code(s): T17.908A - Unspecified foreign body in respiratory tract, part unspecified causing other injury, initial encounter Status: Acute Assessment and Plan: Likely due to altered mental status related to alcohol withdrawal as no focal findings on exam Swallow eval unable to complete 02/27 will follow-up when mental status and strength has improved CXR 02/24 w/o acute change 02/24 Held sedation 02/25 Leukocytosis mild and resolved toay 02/27 03/01 Zosyn day 5 and will d/c after today 03/01 passed swallow test for pureed per ST with thin liquids Lungs clear sat 99% at discharge no cough. Finish course of antibiotics (2) Alcohol withdrawal: Qualifiers: Complication of substance-induced condition: uncomplicated Qualified Code(s): F10.230 - Alcohol dependence with withdrawal, uncomplicated Code(s): F10.239 - Alcohol dependence with withdrawal, unspecified Status: Acute Assessment and Plan: 02/21 CIWA scores from teens to low 20s 02/21 Added p.r.n. haloperidol, increased chlordiazepoxide to 100 mg every 6 hours, increased lorazepam to 2 mg IV q.2 hours p.r.n. 02/21 Discussed with nursing staff that if these measures are ineffective with the transferred to intensive care for Precedex IV 02/23 Symptoms well controlled on day 4 without alcohol and planned to wean sedation 02/24. 02/24 Stop chlordiazepoxide, continue prn lorazepam 02/25 A little more awake, CT brain done but no official reading, no acute stroke or bleed apparent 02/26 More awake, CT w/o stroke or bleed (official reading) 02/27 talking more but still somewhat confused and weak 02/28 , 03/01walking short distance with PT, more alert but still confused 03/03 slowy regaining strength 03/04 ambulating with PT and more alert and cognitive each day but still slightly confused at discharge (3) Acute exacerbation of chronic obstructive pulmonary disease: Code(s): J44.1 - Chronic obstructive pulmonary disease with (acute) exacerbation Status: Resolved Assessment and Plan: 02/22 Transitioned to p.o. steroids and none for 3 days since NPO and d/thais 03/01 with no wheezing and good 02 sats Continue bronchodilators (4) Alcoholic hepatitis: Qualifiers: Ascites presence: without ascites Qualified Code(s): K70.10 - Alcoholic hepatitis without ascites Code(s): K70.10 - Alcoholic hepatitis without ascites Status: Acute Assessment and Plan: 02/26 LFTs improving 02/28 slow trending down, 03/02 all normal except alk phos Ultrasound right upper quadrant showed only hepatic steatosis (5) Depression: Qualifiers: Depression Type: unspecified Qualified Code(s): F32.9 - Major depressive disorder, single episode, unspecified Code(s): F32.9 - Major depressive disorder, single episode, unspecified Status: Chronic Assessment and Plan: Continue sertraline. (6) Hypertension: Qualifiers: Hypertension type: unspecified Qualified Code(s): I10 - Essential (primary) hypertension Code(s): I10 - Essential (primary) hypertension Status: Chronic Assessment and Plan: BP slowly rising restarted amlodipine 03/01 at 1/2 dose of 5 mg daily And continues to run will and will continue the 5 mg at discharge (7) Peripheral artery disease: Code(s): I73.9 - Peripheral vascular disease, unspecified Status: Acute Assessment and Plan: Patient has mild decrease an [place] to the left leg. (8) Neuropathy: Code(s): G62.9 - Polyneuropathy, unsp
== END 2020-03-04 13:50 | DRG 775 ==
LOC: ANHED 16:12 → ANH3MEDSUR 16:53
PROVIDERS: Internal Medicine; Nurse Practitioner; Physician Assistant; Admitting Provider Internal Medicine; Emergency Provider Emergency Medicine; PCP Family Medicine; Visit Provider Internal Medicine
DX: F10.230 Alcohol dependence with withdrawal, uncomplicated (principal); K70.10 Alcoholic hepatitis without ascites; T17.908A Unspecified foreign body in respiratory tract, part unspecified causing other injury, initial encounter; J44.1 Chronic obstructive pulmonary disease with (acute) exacerbation; X58.XXXA Exposure to other specified factors, initial encounter; E87.1 Hypo-osmolality and hyponatremia; Z20.828 Contact with and (suspected) exposure to other viral communicable diseases; G62.9 Polyneuropathy, unspecified; F32.9 Major depressive disorder, single episode, unspecified; I10 Essential (primary) hypertension; I73.9 Peripheral vascular disease, unspecified; K64.4 Residual hemorrhoidal skin tags; F17.210 Nicotine dependence, cigarettes, uncomplicated; R31.29 Other microscopic hematuria; R51 Headache; W01.198A Fall on same level from slipping, tripping and stumbling with subsequent striking against other object, initial encounter; Z79.899 Other long term (current) drug therapy
CPT/HCPCS: 36415; 36600; 70450; 71046; 76705; 80048; 80053; 80076; 80307; 81001; 82140; 82248; 82607; 82728; 82746; 82805; 83540; 83550; 83605; 83615; 83690; 83735; 84100; 84443; 85025; 85027; 85046; 85610; 85730; 86140; 86709; 86803; 87340; 87635; 92526; 92610; 92611; 93005; 93923; 94640; 96361; 96372; 96374; 96375; 96376; 97110; 97116; 97161; 97165; 97530; 97535; 99285; A9270; C9803; G0378; G0379; J1630; J2060; J2543; J2930; J3411; J3475; J3480; J7030; J7042; J7121; J7512; U0003

== ENCOUNTER 2025-07-11 09:31 | Outpatient (RCR) | payer OTHER, SELFPAY ==
--- NOTE | 2025-07-11 13:57 | PCCDE ---
07/11/25: DSMT consult completed
--- NOTE | 2025-07-25 13:29 | PCCDE ---
Addendum entered by Su Mazariegos RD, SARAN, CDE 08/17/25 11:10: 08/17/25: Pt rescheduled previously missed appt for today -- No Show, No Call. Addendum entered by Su Mazariegos RD, SARAN, CDE 08/01/25 09:49: 08/01/25: Pt rescheduled previously cancelled appt on same day, due to reported illness, for today. No Call, No show today. Message left on his voice mail Original Note: Pt left message cancelling DSMT appt due to illness/SOB. I reached out to reschedule, message left.
== END 2025-09-25 13:59 | disposition home or self-care (01) ==
LOC: ANHDMC 09:31
PROVIDERS: PCP Nurse Practitioner Family; Visit Provider Internal Medicine
DX: E11.65 Type 2 diabetes mellitus with hyperglycemia (principal); Z71.89 Other specified counseling
CPT/HCPCS: G0108

== ENCOUNTER → 2025-09-29 15:17 | Outpatient (CLI) | payer OTHER, SELFPAY ==
--- NOTE | ~2025-09-29 | XR_ITS ---
XR thoracic spine 2V Indication: M54.14 - Radiculopathy, thoracic region 2x month no injury Comparison: None Findings: Moderate loss of vertebral height throughout, no acute fracture or subluxation. Moderate to severe loss of disc height throughout. Soft tissues unremarkable Impression: No acute abnormality. Reviewed, dictated and finalized at location [facility] Impression: No acute abnormality.
== END ==
PROVIDERS: PCP Nurse Practitioner Family; Visit Provider Nurse Practitioner Family
DX: M54.14 Radiculopathy, thoracic region (principal)
CPT/HCPCS: 72070